=== PATIENT | male | born 1960 | race Caucasian/White ===

== ENCOUNTER → 2021-08-17 15:23 | Outpatient (BNVA) | payer OTHER, SELFPAY | PROVIDERS: Visit Provider Urology | DX: N40.1 Benign prostatic hyperplasia with lower urinary tract symptoms (principal); N32.0 Bladder-neck obstruction; N13.8 Other obstructive and reflux uropathy; Z79.899 Other long term (current) drug therapy | CPT/HCPCS: 51798 ==

== ENCOUNTER 2022-01-19 08:14 | Emergency (ER) | payer OTHER, SELFPAY ==
[2022-01-19 08:15] VITALS: BP 182/92; PULSE 115; RESP 18; TEMP 35.9; O2SAT 99; BMI 25.1
--- NOTE | 2022-01-19 08:27 | ED.URI ---
HPI - URI/Sore Throat General Chief Complaint: General Medical Stated Complaint: sore throat Time Seen by Provider: 01/19/22 08:24 Source: patient Mode of arrival: ambulatory Limitations: no limitations History of Present Illness MD elicited complaint: sore throat Onset (ago): week(s) (1) Consistency: constant Severity: moderate Able to tolerate fluids by mouth: Yes Exacerbating factors: swallowing Relieving factors: nothing Associated symptoms: headache and sore throat Treatments prior to arrival: none Related Data Previous Rx's Medication Instructions Recorded tamsulosin 0.4 mg capsule 0.4 mg PO DAILY 90 Days #90 cap 03/29/21 finasteride 5 mg tablet 5 mg PO DAILY 90 Days #90 tab 09/27/21 amoxicillin 500 mg tablet 500 mg PO TID 10 Days #30 tab 01/19/22 Allergies Allergy/AdvReac Type Severity Reaction Status Date / Time No Known Allergies Allergy Verified 01/19/22 08:19 [No Known Allergies*] Review of Systems Review of Systems: Constitutional : No Fever, No Chills ENT/Mouth : pos sore throat, No Rhinorrhea Eyes: No Eye Pain, No Swelling, No Redness Cardiovascular : No Chest Pain, No SOB Respiratory : No Cough, No Sputum, No Wheezing Gastrointestinal : No Nausea, No Vomiting Musculoskeletal : No joint pain, No Myalgias Skin : No Skin Lesions, No rash Neuro : No Weakness, No Numbness, No Dizziness, pos Headache PMFSH Past Medical History Medical History No known health problems Social History Social History (Updated 01/19/22 @ 08:40 by Kaila Minor DO) Patient Tobacco Use Status: Never used Tobacco Advance Directives: No Advance Directives Information Provided: No Physical Exam Vital Signs: Vital Signs: Last Vital Signs Temp 96.6 F L 01/19/22 08:15 Pulse 115 H 01/19/22 08:15 Resp 18 01/19/22 08:15 BP 182/92 H 01/19/22 08:15 Pulse Ox 99 01/19/22 08:15 BMI result Body Mass Index 25.1 Appearance: Alert. Oriented X3. No acute distress. Eyes: Pupils equal, round and reactive to light. ENT: Pharynx moderate generalized erythema of both tonsils uvula midline, tolerating secretions Neck: Normal inspection. Neck supple. CVS: Normal heart rate and rhythm. Pulses normal. Respiratory: No respiratory distress. Breath sounds normal. Skin: Skin warm and dry. Normal skin color. Normal skin turgor. Extremities: No lower extremity edema. Neuro: Oriented X 3. No motor deficit. No sensory deficit. MDM - URI/Sore Throat MDM Narrative Medical decision making narrative: 61 yo male here with sore throat - tonsils are swollen uvula is midline throat is very red suspect tonsillitis, he has no signs of deeper space infection, able to tolerate secretions - COVID/strep sent off from triage. Will treat with amoxicillin Discharge Plan Discharge Clinical Impression: Acute tonsillitis Patient Disposition: Home, Self-Care Instructions: Tonsillitis (ED) Additional Instructions: return to ED for any worsening symptoms or concerns Prescriptions: New amoxicillin 500 mg tablet 500 mg PO TID 10 Days Qty: 30 0RF No Action tamsulosin 0.4 mg capsule 0.4 mg PO DAILY 90 Days Qty: 90 2RF finasteride 5 mg tablet 5 mg PO DAILY 90 Days Qty: 90 3RF Referrals: Physician,None [Primary Care Provider] - 2 days (if not better) Stand Alone Forms: Work/School Release
[2022-01-19 08:45] LABS: IDNOW Serial# 08D9AD1C; Strep A Nucleic Acid Negative (Negative)
[2022-01-19 08:49] LABS: COVID-19 Test Negative (Negative)
[2022-01-19] MEDS: Amoxicillin 500 MG CAPSULE PO (08:49)
== END 2022-01-19 09:10 | disposition home or self-care (01) ==
PROVIDERS: Emergency Provider Emergency Medicine
DX: J03.90 Acute tonsillitis, unspecified (principal); Z20.822 Contact with and (suspected) exposure to COVID-19; Z79.899 Other long term (current) drug therapy
CPT/HCPCS: 36415; 87635; 87651; 99283

== ENCOUNTER 2022-02-05 17:58 | Emergency (ER) | payer OTHER, SELFPAY ==
--- NOTE | ~2022-02-05 | CT_ITS ---
Indication: Trauma EXAMINATION: CT the brain and cervical spine. This CT examination was performed using dose optimization techniques as appropriate, variously including the following: *Automated exposure control *Adjustment of mA and/or kV according to patient size (this includes techniques or standardized protocols for targeted exams where dose is matched to indication/reason for exam; i.e. extremities or head) *Use of iterative reconstruction technique. Radiation dose [address] brain; There is no midline shift. There is no mass effect. There is no hemorrhage. The basilar cisterns appear patent. The posterior fossa risk grossly within normal limits. No extra-axial collection. The perez-white differential is maintained. There is no fracture on the bone windows. CT cervical spine; No fracture or dislocation. CT/CT head/brain wo con IMPRESSION: Negative acute noncontrast CT of the brain. No fracture or dislocation of the cervical spine.
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
--- NOTE | ~2022-02-05 | CT_ITS ---
Indication: Trauma EXAMINATION: CT the brain and cervical spine. This CT examination was performed using dose optimization techniques as appropriate, variously including the following: *Automated exposure control *Adjustment of mA and/or kV according to patient size (this includes techniques or standardized protocols for targeted exams where dose is matched to indication/reason for exam; i.e. extremities or head) *Use of iterative reconstruction technique. Radiation dose [address] brain; There is no midline shift. There is no mass effect. There is no hemorrhage. The basilar cisterns appear patent. The posterior fossa risk grossly within normal limits. No extra-axial collection. The perez-white differential is maintained. There is no fracture on the bone windows. CT cervical spine; No fracture or dislocation. CT/CT cervical spine wo con IMPRESSION: Negative acute noncontrast CT of the brain. No fracture or dislocation of the cervical spine.
--- NOTE | ~2022-02-05 | XR_ITS ---
EXAMINATION: CHEST, BILATERAL KNEES AND AP PELVIS. CLINICAL INFORMATION: Head trauma, EtOH COMPARISON: None TECHNIQUE: Chest one view. 2 views each knee and pelvis one view. FINDINGS: Chest: Both lungs are fairly well-expanded and clear of acute process. The heart size and pulmonary vascularity is normal. No gross bony abnormality seen. Right knee: There is no visible acute fracture, dislocation or subluxation seen. No bony erosive changes. The soft tissues are normal. No abnormal joint effusion. Left knee: The tricompartment joint space is maintained normal. No visible acute fracture, dislocation or subluxation seen. AP pelvis: There is normal symmetry of bilateral SI joints and hip joints. No visible acute fracture or dislocation seen. XR/XR knee LT 2V IMPRESSION: Unremarkable AP pelvis. Unremarkable bilateral knees. Unremarkable chest x-ray.
--- NOTE | ~2022-02-05 | XR_ITS ---
EXAMINATION: CHEST, BILATERAL KNEES AND AP PELVIS. CLINICAL INFORMATION: Head trauma, EtOH COMPARISON: None TECHNIQUE: Chest one view. 2 views each knee and pelvis one view. FINDINGS: Chest: Both lungs are fairly well-expanded and clear of acute process. The heart size and pulmonary vascularity is normal. No gross bony abnormality seen. Right knee: There is no visible acute fracture, dislocation or subluxation seen. No bony erosive changes. The soft tissues are normal. No abnormal joint effusion. Left knee: The tricompartment joint space is maintained normal. No visible acute fracture, dislocation or subluxation seen. AP pelvis: There is normal symmetry of bilateral SI joints and hip joints. No visible acute fracture or dislocation seen. XR/XR knee RT 2V IMPRESSION: Unremarkable AP pelvis. Unremarkable bilateral knees. Unremarkable chest x-ray.
--- NOTE | ~2022-02-05 | XR_ITS ---
EXAMINATION: CHEST, BILATERAL KNEES AND AP PELVIS. CLINICAL INFORMATION: Head trauma, EtOH COMPARISON: None TECHNIQUE: Chest one view. 2 views each knee and pelvis one view. FINDINGS: Chest: Both lungs are fairly well-expanded and clear of acute process. The heart size and pulmonary vascularity is normal. No gross bony abnormality seen. Right knee: There is no visible acute fracture, dislocation or subluxation seen. No bony erosive changes. The soft tissues are normal. No abnormal joint effusion. Left knee: The tricompartment joint space is maintained normal. No visible acute fracture, dislocation or subluxation seen. AP pelvis: There is normal symmetry of bilateral SI joints and hip joints. No visible acute fracture or dislocation seen. XR/XR chest 1V IMPRESSION: Unremarkable AP pelvis. Unremarkable bilateral knees. Unremarkable chest x-ray.
--- NOTE | 2022-02-05 18:12 | ECG_ITS ---
Test Reason : ETOH Blood Pressure : / mmHG Vent. Rate : 085 BPM Atrial Rate : 085 BPM P-R Int : 228 ms QRS Dur : 086 ms QT Int : 386 ms P-R-T Axes : 069 006 052 degrees QTc Int : 459 ms Sinus rhythm with 1st degree A-V block Possible Inferior infarct , age undetermined Abnormal ECG No previous ECGs available Referred By: Emi Dumont Electronically Signed By:KRUNAL SILVA
[2022-02-05 18:13] VITALS: BP 136/79; BP 160/90; PULSE 82; PULSE 90; RESP 18; TEMP 36.6; O2SAT 94; O2SAT 95; BMI 25.8
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
[2022-02-05 18:30] VITALS: BP 144/81; PULSE 88; RESP 16; O2SAT 94
[2022-02-05 19:35] VITALS: BP 120/78; PULSE 90; RESP 15; O2SAT 97
[2022-02-05] MEDS: Diphth,Pertus(ACell),Tet Adult 0.5 ML SYRINGE IM (19:42)
[2022-02-05 20:31] VITALS: BP 130/82; PULSE 88; RESP 15; TEMP 36.6; O2SAT 95
== END 2022-02-05 22:08 | disposition home or self-care (01) ==
PROVIDERS: Emergency Provider Emergency Medicine Emergency Medical Services
DX: S06.0X0A Concussion without loss of consciousness, initial encounter (principal); S00.81XA Abrasion of other part of head, initial encounter; S80.212A Abrasion, left knee, initial encounter; S80.211A Abrasion, right knee, initial encounter; V17.0XXA Pedal cycle driver injured in collision with fixed or stationary object in nontraffic accident, initial encounter; F10.120 Alcohol abuse with intoxication, uncomplicated; Y90.9 Presence of alcohol in blood, level not specified; Y93.55 Activity, bike riding; Y92.414 Local residential or business street as the place of occurrence of the external cause; Y99.9 Unspecified external cause status
CPT/HCPCS: 70450; 71045; 72125; 72170; 73560; 90471; 90715; 93005; 99283; 99284

== ENCOUNTER 2022-06-26 20:28 | Emergency (ER) | payer OTHER, SELFPAY ==
[2022-06-26 21:42] VITALS: BP 170/88; PULSE 90; RESP 18; TEMP 37.2; O2SAT 98; BMI 25.7
[2022-06-26 21:58] LABS: MANUAL DIFF FLAG NO
[2022-06-26 21:59] LABS: Basophils Percent Auto 0.4 % (0-2); Eosinophils Absolute Auto 0.2 X10*3/uL (0.0-0.4); Eosinophils Percent Auto 1.4 % (0-4); Hematocrit 45.1 % (42.0-52.0); Hemoglobin 15.1 g/dl (14.0-18.0); Imm Gran Abs Auto 0.04 X10*3/uL (0.00-0.03); Imm Gran Pct Auto 0.4 % (0.0-0.4); Lymphocytes Absolute Auto 1.3 X10*3/uL (1.2-4.9); Lymphocytes Percent Auto 11.7 % (20-40); Mean Corpuscular HGB Conc 33.5 g/dl (31.0-36.0); Mean Corpuscular Hemoglobin 30.4 pg (27.0-33.0); Mean Corpuscular Volume 90.7 fL (80.0-98.0); Mean Platelet Volume 7.7 fL (9.4-12.4); Monocytes Percent Auto 9.3 % (2-11); Neutrophils Absolute Auto 8.3 x10*3/uL (2.0-8.3); Neutrophils Percent Auto 76.8 % (45-73); Platelet Count 243 X10*3/uL (160-400); Red Blood Count 4.97 X10*6/uL (4.60-5.80); Red Cell Distribution Width 12.6 % (11.0-16.0); White Blood Count 10.8 X10*3/uL (4.8-10.8)
[2022-06-26 22:14] LABS: COVID-19 Test Negative (Negative)
[2022-06-26 22:16] LABS: Alanine Aminotransferase 16 U/L (0-40); Albumin Level 4.2 g/dL (3.5-5.0); Alkaline Phosphatase 91 U/L (39-117); Anion Gap 15 (12-20); Aspartate Amino Transferase 15 U/L (5-37); Bilirubin Total 0.7 mg/dL (0.0-1.0); Blood Urea Nitrogen 15 mg/dL (9-16); Calcium 9.4 mg/dL (8.4-10.2); Carbon Dioxide 26 mmol/L (22-29); Chloride 104 mmol/L (96-108); Creatinine Clr Calc Pharmacy 83.6; Estimated Glomerular Filt Rate > 60; Glucose Random 113 mg/dL (60-115); Potassium 3.9 mmol/L (3.3-5.1); Sodium 141 mmol/L (135-145); Total Protein 6.7 g/dL (6.5-8.0)
--- NOTE | 2022-06-26 23:20 | ED_ITS ---
HPI - General Adult General Chief complaint: General Medical Stated complaint: Bodyaches/Wants covid swab Time Seen by Provider: 06/26/22 22:57 Source: patient Mode of arrival: ambulatory Limitations: no limitations History of Present Illness HPI narrative: 62-year-old healthy male presents to the ER for evaluation of body aches that started this afternoon around 15:00. He reports the muscles in his back shoulde rs arms and chest wall were all very sore. He took Tylenol and the pain got better. He is worried he may have COVID. He denies any fever, chills, cough, chest pain, shortness a breath, abdominal pain, nausea, vomiting, diarrhea. He has been eating and drinking normally. He denies any vigorous physical activity or known injuries. On arrival to the ER he is feeling much better. MD complaint: Body ache Onset (ago): hour(s) Location: head, chest, left, right and upper extremity Radiation: non-radiation Severity: moderate Pain Consistency: now resolved Relieving factors: none Exacerbating factors: none Associated symptoms: denies other symptoms Treatments prior to arrival: none Related Data Previous Rx's Medication Instructions Recorded tamsulosin 0.4 mg capsule 0.4 mg PO DAILY 90 days #90 caps 03/29/21 finasteride 5 mg tablet 5 mg PO DAILY 90 days #90 tabs 09/27/21 amoxicillin 500 mg tablet 500 mg PO TID 10 days #30 tabs 01/19/22 Allergies Allergy/AdvReac Type Severity Reaction Status Date / Time No Known Allergies Allergy Verified 06/26/22 21:48 [No Known Allergies*] Review of Systems Review of Systems: Constitutional: No Fever, No Chills ENT/Mouth: No sore throat, No Rhinorrhea, No Swallowing Difficulty Cardiovascular: No Chest Pain, No SOB, No Orthopnea, No Edema Respiratory: No Cough, No Sputum, No Wheezing, No dyspnea Gastrointestinal: No Nausea, No Vomiting, No Diarrhea, No abdominal Pain, No Hematochezia, No Melena Genitourinary: No Dysuria, No Urinary Frequency, No Hematuria Musculoskeletal: No joint pain, + Myalgias Skin: No Skin Lesions, No rash Neuro: No Weakness, No Numbness, No Dizziness, + Headache Psych: + Anxiety/Panic, No Depression Heme/Lymph: No Bruising, No Lymphadenopathy Endocrine: No Polyuria, No Polydipsia PMFSH Past Medical History Medical History No known health problems Social History Social History Patient Tobacco Use Status: Never used Tobacco Advance Directives: No Advance Directives Information Provided: No Physical Exam ED Vital Signs: Vital Signs - 24 hr 06/26/22 21:42 Temperature 98.9 F Pulse Rate 90 Respiratory Rate 18 Blood Pressure 170/88 H Pulse Oximetry 98 Oxygen Delivery Method Room Air BMI result Body Mass Index 25.7 Appearance: Alert. Oriented X3. No acute distress. Eyes: Pupils equal, round and reactive to light. ENT: Pharynx normal. Neck: Normal inspection. Neck supple. CVS: Normal heart rate and rhythm. Pulses normal. Respiratory: No respiratory distress. Breath sounds normal. Skin: Skin warm and dry. Normal skin color. Normal skin turgor. No rashes. Extremities: No lower extremity edema. Normal inspection x4, normal ROM. nontender Neuro: Oriented X 3. No motor deficit. No sensory deficit. Course Course Course Narrative: 62-year-old male with no significant medical history presents to the ER for evaluation of transient body aches that occurred earlier this afternoon. Impro nimo with Tylenol. He is concerned he may have COVID. COVID swab today was negative. His vital signs and exam are unremarkable. At this time is stable for discharge home with supportive care. Counseled to monitor fever curve and keep an eye on his symptoms. Encouraged to get at home COVID tests. He needs a PCP in this information was provided. Stable for DC. Medical Decision Making Lab Data Result diagrams: 06/26/22 21:51 06/26/22 21:51 Labs: Lab Results 06/26/22 06/26/22 06/26/22 Range/Units 21:48 21:51 21:51 WBC 10.8 (4.8-10.8) X10*3/uL RBC 4.97 (4.60-5.80) X10*6/uL Hgb 15.1 (14.0-18.0) g/dl Hct 45.1 (42.0-52.0) % MCV 90.7 (80.0-98.0) fL MCH 30.4 (27.0-33.0) pg MCHC 33.5 (31.0-36.0) g/dl RDW 12.6 (11.0-16.0) % Plt Count 243 (160-400) X10*3/uL MPV 7.7 L (9.4-12.4) fL Immature Gran % (Auto) 0.4 (0.0-0.4) % Neut % (Auto) 76.8 H (45-73) % Lymph % (Auto) 11.7 L (20-40) % [place] % (Auto) 9.3 (2-11) % Eos % (Auto) 1.4 (0-4) % Baso % (Auto) 0.4 (0-2) % Lymph # (Auto) 1.3 (1.2-4.9) X10*3/uL [place] # (Auto) 1.0 (0.1-1.2) X10*3/uL Eos # (Auto) 0.2 (0.0-0.4) X10*3/uL Baso # (Auto) 0.0 (0.0-0.2) X10*3/uL Abs Immat Gran (auto) 0.04 H (0.00-0.03) X10*3/uL Absolute Neuts (auto) 8.3 (2.0-8.3) x10*3/uL Absolute Nucleated RBC 0.000 (0.0-0.012) X10*3/uL Nucleated RBC % (auto) 0.0 (0.0-0.2) /100WBC Sodium 141 (135-145) mmol/L Potassium 3.9 (3.3-5.1) mmol/L Chloride 104 (96-108) mmol/L Carbon Dioxide 26 (22-29) mmol/L Anion Gap 15 (12-20) BUN 15 (9-16) mg/dL Creatinine 0.95 (0.5-1.4) mg/dL Estim Creat Clear Calc 83.6 Estimated GFR > 60 Random Glucose 113 (60-115) mg/dL Calcium 9.4 (8.4-10.2) mg/dL Total Bilirubin 0.7 (0.0-1.0) mg/dL AST 15 (5-37) U/L ALT 16 (0-40) U/L Alkaline Phosphatase 91 (39-117) U/L Total Protein 6.7 (6.5-8.0) g/dL Albumin 4.2 (3.5-5.0) g/dL COVID-19 (DAFNE) Negative (Negative) COVID-19 Clin Com See Note Discharge Plan Discharge Clinical Impression: Body aches Patient Disposition: Home, Self-Care Instructions: Viral Syndrome (ED) Additional Instructions: Your lab workup today was unremarkable. Your negative for COVID-19. Recommend rest, drink plenty of fluids, take Motrin and/or Tylenol as needed for body aches. If you develop new or worsening symptoms call 911 or come back to the ER for further evaluation. Prescriptions: No Action tamsulosin 0.4 mg capsule 0.4 mg PO DAILY 90 Days Qty: 90 2RF finasteride 5 mg tablet 5 mg PO DAILY 90 Days Qty: 90 3RF amoxicillin 500 mg tablet 500 mg PO TID 10 Days Qty: 30 0RF Interventions: ED Discharge Assessment Last Done: 06/26/22 23:32 Discharge Date/Time: 06/26/22 23:33
== END 2022-06-26 23:33 | disposition home or self-care (01) ==
PROVIDERS: Emergency Provider Emergency Medicine
DX: M79.10 Myalgia, unspecified site (principal); R07.89 Other chest pain; Z20.822 Contact with and (suspected) exposure to COVID-19; Z79.899 Other long term (current) drug therapy
CPT/HCPCS: 36415; 80053; 85025; 87635; 99282; 99283

== ENCOUNTER 2022-07-28 16:09 | Outpatient (REF) | payer OTHER, SELFPAY ==
[2022-07-28 18:28] LABS: Prostate Specific Antigen 1.38 ng/mL (<0.05-4.0)
== END 2022-07-28 16:10 | disposition home or self-care (01) ==
LOC: HO.LAB 16:09
PROVIDERS: Visit Provider Urology
DX: Z12.5 Encounter for screening for malignant neoplasm of prostate (principal); N40.1 Benign prostatic hyperplasia with lower urinary tract symptoms; N13.8 Other obstructive and reflux uropathy; N32.0 Bladder-neck obstruction
CPT/HCPCS: 36415; 84153

== ENCOUNTER → 2022-08-04 13:10 | Outpatient (BNVA) | payer OTHER, SELFPAY | PROVIDERS: Visit Provider Urology | DX: N32.0 Bladder-neck obstruction (principal) | CPT/HCPCS: 51798 ==

== ENCOUNTER 2023-01-23 11:20 | Emergency (ER) | payer OTHER, SELFPAY ==
--- NOTE | ~2023-01-23 | CT_ITS ---
EXAMINATION: CT ABDOMEN AND PELVIS WITHOUT CONTRAST CLINICAL INFORMATION: Left renal colic and flank pain. COMPARISON: CT scan of the abdomen and pelvis dated 06/25/2019. TECHNIQUE: Multidetector volumetric imaging was performed from the superior aspect of the liver through the pubic symphysis. Sagittal and coronal reformatted images were obtained on the technologist's workstation. Lack of intravenous and oral contrast limits visceral evaluation. This CT examination was performed using dose optimization techniques as appropriate, variously including the following: *Automated exposure control *Adjustment of mA and/or kV according to patient size (this includes techniques or standardized protocols for targeted exams where dose is matched to indication/reason for exam; i.e. extremities or head) *Use of iterative reconstruction technique DLP: 496 mGy-cm FINDINGS: LUNG BASES: The visualized lung bases are unremarkable. LIVER, GALLBLADDER, AND BILIARY TREE: Unremarkable. PANCREAS: Unremarkable. SPLEEN: Unremarkable. ADRENAL GLANDS: Unremarkable. KIDNEYS AND URETERS: Several small low-attenuation foci without calcification is seen bilaterally. A credit resolution representative focus in the posterior interpolar left kidney measures 2.0 cm in cc dimension and demonstrates fluid attenuation (image 62, series 7). Several nonobstructing intrarenal calculi are seen bilaterally, left greater than right. No hydronephrosis. BLADDER: Mildly distended with mild mural thickening and possible trabeculation. No significant focal abnormality. GASTROINTESTINAL TRACT: The stomach and small bowel unremarkable. No evidence for acute appendicitis. Colon shows mild diverticulosis in the sigmoid colon without surrounding abnormality. The rectum is unremarkable. ABDOMINAL WALL: Small fat-containing umbilical hernia. LYMPH NODES: No lymphadenopathy. VASCULAR: Unremarkable. PELVIC VISCERA: Mild prostatomegaly. OSSEOUS STRUCTURES: Unremarkable. CT/CT abdomen pelvis wo IV con IMPRESSION: 1. Nonobstructing intrarenal calculi bilaterally, left greater than right. No hydroureteronephrosis. Small low-attenuation foci bilaterally demonstrate benign features and likely represent cysts not requiring follow-up at this time. 2. Mild sigmoid diverticulosis without evidence for acute diverticulitis. 3. Mild mural thickening and possible trabeculation and urinary bladder without focal mural abnormality likely representing chronic changes from prostamegaly.
--- NOTE | ~2023-01-23 | XR_ITS ---
EXAMINATION: XR LUMBOSACRAL SPINE CLINICAL INFORMATION: Back pain. COMPARISON: None available. TECHNIQUE: Three views of the lumbosacral spine. FINDINGS: There is generalized osteopenia. Normal lumbar lordosis and spinal alignment is seen. Mild disc space narrowing is seen at L4-5 and L5-S1. The vertebral bodies are intact. A small calcification overlies the left midabdomen/kidney. The soft tissues are unremarkable. XR/XR lumbar spine 2-3V IMPRESSION: 1. L4-5 and L5-S1 mild disc space narrowing may be degenerative in nature. No acute abnormality. 2. Radiographic densities overlying the left abdomen could represent a left adrenal calculus.
[2023-01-23 11:22] VITALS: BP 148/88; PULSE 104; RESP 19; TEMP 36.6; O2SAT 98; BMI 25.1
--- NOTE | 2023-01-23 11:23 | ED_ITS ---
HPI - Back Pain/Injury General Chief Complaint: Back Pain/Injury <ECHO Lopez - Last Filed: 01/23/23 11:25> Stated Complaint: severe back pain travels to leg <ECHO Lopez - Last Filed: 01/23/23 11:25> Time Seen by Provider: 01/23/23 11:29 <ECHO Lopez - Last Filed: 01/23/23 11:25> Source: patient and RN notes reviewed <Angelica Pablo NP - Last Filed: 01/23/23 16:56> Mode of arrival: ambulatory <Angelica Pablo NP - Last Filed: 01/23/23 16:56> Limitations: no limitations <Angelica Pablo NP - Last Filed: 01/23/23 16:56> History of Present Illness HPI Narrative: This is a [id number], with a past medical history of bladder outlet obstruction, who presents to the emergency department with complaints of low back pain x 10 days. Pt reports that while he was at work a large paper roll was stuck, and he used his buttocks/back to strike the object multiple times in order to make this loose. He states that since this incident, he has had worsening left low back pain that radiates into his left buttocks and left thigh . He is ambulatory, but reports worsening pain with movement and with palpation. Denies hx of back pain or injuries in the past. Denies chest pain or shortness of breath. No urinary retention or incontinence. Denies any bowel incontinence or constipation. Denies any saddle paraesthesia. No other complaints or concerns at this time. <Angelica Pablo NP - Last Filed: 01/23/23 16:56> MD elicited complaint: back injury <Angelica Pablo NP - Last Filed: 01/23/23 16:56> Pertinent past history: recent trauma <Angelica Pablo NP - Last Filed: 01/23/23 16:56> Onset (ago): day(s) <FLORENTIN Garzon Last Filed: 01/23/23 16:56> Timing: constant <Angelica Pablo NP - Last Filed: 01/23/23 16:56> Severity: moderate <Angelica Pablo NP - Last Filed: 01/23/23 16:56> Similar Symptoms Previously: No <Angelica Pablo NP - Last Filed: 01/23/23 16:56> Quality: aching <Angelica Pablo NP - Last Filed: 01/23/23 16:56> Radiation: buttocks <Angelica Pablo [employer] - Last Filed: 01/23/23 16:56> Exacerbating factors: movement <Angelica Pablo NP - Last Filed: 01/23/23 16:56> Relieving factors: immobilization <Angelica Pablo NP - Last Filed: 01/23/23 16:56> Associated symptoms: denies other symptoms <Angelica Pablo NP - Last Filed: 01/23/23 16:56> Work related injury: Yes <Angelica Pablo NP - Last Filed: 01/23/23 16:56> Related Data Home Medications: Previous Rx's Medication Instructions Recorded tamsulosin 0.4 mg capsule 0.4 mg PO DAILY 90 days #90 caps 03/29/21 amoxicillin 500 mg tablet 500 mg PO TID 10 days #30 tabs 01/19/22 finasteride 5 mg tablet 5 mg PO DAILY 90 days #90 tabs 08/04/22 cyclobenzaprine 10 mg tablet 10 mg PO TID PRN muscle spasm #10 01/23/23 tabs lidocaine 5 % topical patch 1 patch topical DAILY #15 ea 01/23/23 (Lidoderm) <ECHO Lopez - Last Filed: 01/23/23 11:25> Allergies/Adverse Reactions: Allergies Allergy/AdvReac Type Severity Reaction Status Date / Time No Known Allergies Allergy Verified 01/23/23 11:22 [No Known Allergies*] <ECHO Lopez - Last Filed: 01/23/23 11:25> Review of Systems Review of Systems: Yes all other systems are reviewed and are negative <Angelica Pablo NP - Last Filed: 01/23/23 16:56> Constitutional: Constitutional: Reports no additional constitutional complaints, Denies body ache(s), Denies chills, Denies fever(s), Denies headache(s) and Denies weakness <Angelica Pablo [employer] - Last Filed: 01/23/23 16:56> Eyes: Eyes: Reports no additional eye complaints and Denies change in vision <Angelica Pablo [employer] - Last Filed: 01/23/23 16:56> ENT: Reports system reviewed and no additional complaints, except as documented, Denies dizziness, Denies headache(s), Denies nasal congestion, Denies nasal discharge and Denies neck pain <Angelica Pablo [employer] - Last Filed: 01/23/23 16:56> Cardiovascular: Cardiovascular: Reports no additional cardiovascular complaints, Denies chest pain, Denies leg edema and Denies dyspnea <Angelica Pablo [employer] - Last Filed: 01/23/23 16:56> Respiratory: Respiratory: Reports no additional respiratory complaints, Denies cough and Denies dyspnea <Angelica Pablo [employer] - Last Filed: 01/23/23 16:56> Gastrointestinal: Gastrointestinal: Reports no additional gastrointestinal complaints, Denies abdominal pain, Denies diarrhea, Denies nausea and Denies vomiting <Angelica Pablo [employer] - Last Filed: 01/23/23 16:56> Genitourinary: Genitourinary: Denies urinary incontinence <Angelica Pablo [employer] - Last Filed: 01/23/23 16:56> Musculoskeletal: Musculoskeletal: Reports no additional musculoskeletal complaints, Reports back pain, Denies arthralgias, Denies joint swelling, Denies neck pain, Denies numbness and Denies tingling <Angelica Pablo [employer] - Last Filed: 01/23/23 16:56> Integumentary/Breasts: Skin/Breast: Reports system reviewed and no additional complaints, except as docu and Denies rash <Angelica Pablo [employer] - Last Filed: 01/23/23 16:56> Neurologic: Reports system reviewed and no additional complaints, except as documented, Denies Abnormal speech present, Denies dizziness, Denies headache(s), Denies numbness, Denies tingling and Denies weakness <Angelica Pablo NP - Last Filed: 01/23/23 16:56> [facility] Past Medical History Attestation statement: The following information was validated with the patient. <Angelica Pablo NP - Last Filed: 01/23/23 16:56> Medical History: Medical History Benign prostatic hyperplasia with lower urinary tract symptoms H/O urinary retention No known health problems <ECHO Lopez - Last Filed: 01/23/23 11:25> Social History Social History: Social History Patient Tobacco Use Status: Never used Tobacco Advance Directives: No Advance Directives Information Provided: Yes <ECHO Lopez - Last Filed: 01/23/23 11:25> Physical Exam Vital Signs: Vital Signs: Last Vital Signs Temp 97.4 F 01/23/23 16:00 Pulse 72 01/23/23 16:00 Resp 16 01/23/23 16:00 BP 146/74 H 01/23/23 16:00 Pulse Ox 98 01/23/23 16:00 O2 Del Method 01/23/23 16:00 BMI result Body Mass Index 25.1 <ECHO Lopez - Last Filed: 01/23/23 11:25> Vital Signs: Last Vital Signs Temp 97.4 F 01/23/23 16:00 Pulse 72 01/23/23 16:00 Resp 16 01/23/23 16:00 BP 146/74 H 01/23/23 16:00 Pulse Ox 98 01/23/23 16:00 O2 Del Method 01/23/23 16:00 BMI result Body Mass Index 25.1 <Angelica Pablo NP - Last Filed: 01/23/23 16:56> Const: General: cooperative, healthy appearing, comfortable and no acute distress <Angelica Pablo NP - Last Filed: 01/23/23 16:56> Orientation/consciousness: patient oriented x3 <Angelica Pablo NP - Last Filed: 01/23/23 16:56> Limitations: no limitations <Angelica Pablo [employer] - Last Filed: 01/23/23 16:56> HEENT: Head: Yes normal to inspection <Angelica Pablo [employer] - Last Filed: 01/23/23 16:56> Ears: hearing grossly normal bilaterally <Angelica Pablo [employer] - Last Filed: 01/23/23 16:56> General nose exam: Normal external nose present <Angelica Pablo [employer] - Last Filed: 01/23/23 16:56> Face and sinus: Yes normal facial exam <Angelica Pablo [employer] - Last Filed: 01/23/23 16:56> Mouth: Normal oral and palatal mucosa present <Angelica Pablo [employer] - Last Filed: 01/23/23 16:56> Throat: Yes posterior oropharynx normal <Angelica Pablo [employer] - Last Filed: 01/23/23 16:56> Eyes: General: appearance normal, both eyes and all related structures <Angelica Pablo [employer] - Last Filed: 01/23/23 16:56> Pupils: Equal, round and reactive pupils present <Angelica Pablo [employer] - Last Filed: 01/23/23 16:56> Neck: Neck: Yes normal visual inspection <Angelica Pablo [employer] - Last Filed: 01/23/23 16:56> Chest: Chest palpation & inspection: normal inspection of the chest <Angelica Pablo [employer] - Last Filed: 01/23/23 16:56> Resp: Effort & Inspection: normal respiratory effort <Angelica Pablo [employer] - Last Filed: 01/23/23 16:56> Auscultation: clear to auscultation bilaterally <Angelica Pablo [employer] - Last Filed: 01/23/23 16:56> Cardio: Rate: regular rate <Angelica Pablo [employer] - Last Filed: 01/23/23 16:56> Rhythm: regular rhythm <Angelica Pablo [employer] - Last Filed: 01/23/23 16:56> Peripheral pulses: Peripheral pulses 2+ throughout <Angelica Pablo [employer] - Last Filed: 01/23/23 16:56> GI: Inspection: Yes normal to inspection <Angelicaalcon Pablo [employer] - Last Filed: 01/23/23 16:56> Palpation (GI): Soft to palpation and nontender <Angelica Pablo [employer] - Last Filed: 01/23/23 16:56> Auscultation: normal bowel sounds <Angelica Pablo [employer] - Last Filed: 01/23/23 16:56> Back/Spine/Pelvis: Other: No midline spine tenderness. TTP over the left paraspinous muscles. No SI joint tenderness. Negative straight leg raise bilaterally. <Angelica Pablo, [employer] - Last Filed: 01/23/23 16:56> Thoracic/Lumbar Spine: thoracic and lumbar spine normal to inspection <Angelica Pablo, [employer] - Last Filed: 01/23/23 16:56> Skin: General skin exam: no rashes or lesions noted <Angelica Pablo [employer] - Last Filed: 01/23/23 16:56> Neuro: General: patient oriented x3, no focal motor deficits and normal sensation to monofilament <Angelica Pablo, [employer] - Last Filed: 01/23/23 16:56> Cranial nerves: Yes Equal, round and reactive pupils present <Angelica Pablo [employer] - Last Filed: 01/23/23 16:56> Cognition (Neuro): normal cognition <Angelica Pablo [employer] - Last Filed: 01/23/23 16:56> Speech: No Abnormal speech present <Angelica Pablo [employer] - Last Filed: 01/23/23 16:56> Gait exam (Neuro): Normal gait present <Angelica Pablo [employer] - Last Filed: 01/23/23 16:56> Motor exam (neuro): 5/5 motor strength present throughout <Angelica Pablo [employer] - Last Filed: 01/23/23 16:56> Sensory Exam: Normal double simultaneous stimulation for sensation <Angelica Pablo [employer] - Last Filed: 01/23/23 16:56> Deep tendon reflexes (DTR's): Right patellar reflex intensity grade: 2+ and Left patellar reflex intensity grade: 2+ <Angelica Pablo NP - Last Filed: 01/23/23 16:56> Extrem: General: Yes normal to inspection and No no pedal edema <Angelica Pablo NP - Last Filed: 01/23/23 16:56> Course Course Course Narrative: This is an RME: Additional HPI, ROS, PE not included below will be deferred to primary provider. 62 year old male hx of SMITH presents w/ L sided lumbar back pain w/ radiation into L buttocks and thigh X1 week. 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 No blunt trauma however. Denies red flag symptoms. PE: tenderness to L lumbar region. No midline tenderness. Ambulatory. Well appearing Plan:medication, imaging of lower back. <ECHO Lopez - Last Filed: 01/23/23 11:25> Reevaluation(s) Reevaluation #1: 1308-X-ray of lumbar spine shows degenerative changes ?left renal colic. Will obtain CT A/P <Angelica Pablo NP - Last Filed: 01/23/23 16:56> Reevaluation #2: 1650-Ct A/P shows infrarenal calculi, other chronic findings discussed with the patient. Likely lumbar strain. Will d/c home with flexeril. lidoderm patches. Reviewed worrisome signs/symptoms with the patient and when to seek additional care. Comfortable with plan for discharge home. <Angelica Pablo NP - Last Filed: 01/23/23 16:56> Medications Administered Discontinued Medications Generic Name Dose Route Start Last Admin Trade Name Scottq PRN Reason Stop Dose Admin Cyclobenzaprine HCl 10 mg 01/23/23 11:21 01/23/23 11:32 Cyclobenzaprine Hcl 10 Mg Tablet PO 01/23/23 11:22 10 mg ONCE ONE Administration Ketorolac Tromethamine 30 mg 01/23/23 11:21 01/23/23 11:32 Ketorolac Tromethamine 30 Mg/Ml Vial IM 01/23/23 11:22 30 mg ONCE ONE Administration Lidocaine 1 patch 01/23/23 11:21 01/23/23 11:31 Lidocaine 4 % Patch Adh..Patch TRANSDERMA 01/23/23 11:22 1 patch ONCE ONE Administration Protocol <ECHO Lopez - Last Filed: 01/23/23 11:25> Medications Administered Discontinued Medications Generic Name Dose Route Start Last Admin Trade Name Renetta PRN Reason Stop Dose Admin Cyclobenzaprine HCl 10 mg 01/23/23 11:21 01/23/23 11:32 Cyclobenzaprine Hcl 10 Mg Tablet PO 01/23/23 11:22 10 mg ONCE ONE Administration Ketorolac Tromethamine 30 mg 01/23/23 11:21 01/23/23 11:32 Ketorolac Tromethamine 30 Mg/Ml Vial IM 01/23/23 11:22 30 mg ONCE ONE Administration Lidocaine 1 patch 01/23/23 11:21 01/23/23 11:31 Lidocaine 4 % Patch Adh..Patch TRANSDERMA 01/23/23 11:22 1 patch ONCE ONE Administration Protocol <Angelica Pablo NP - Last Filed: 01/23/23 16:56> Medical Decision Making Medical Decision Making MDM Narrative: 62 yo M, with a hx of bladder outlet obstruction, who presents today with traumatic back pain after using his backside to hit an object 10 days ago at work. Vital signs stable. On exam, patient has TTP over the left paraspinous muscles with no midline spine tenderness. Patient is ambulatory. No urinary retention or incontinence. No constipation, no bowel incontinence. No saddle paraesthesia. Lumbar spine xrays ordered, patient mediated with Toradol, lidocaine patches, and flexeril. <Angelica Pablo NP - Last Filed: 01/23/23 16:56> Differential Diagnosis Differential Diagnoses: The differential diagnosis associated with the presentation includes <Angelica Pablo NP - Last Filed: 01/23/23 16:56> Lumbar contusion, sciatica, fracture- less likely, cauda equina, AAA, epidural abscess <Angelica Pablo NP - Last Filed: 01/23/23 16:56> Independent Interpretation I performed an independent interpretation of an: Plain X-Ray and CT Scan <Angelica Pablo NP - Last Filed: 01/23/23 16:56> Interpretation: I independently reviewed the chest x-ray and Ct scan and agree with radiologist report <Angelica Pablo NP - Last Filed: 01/23/23 16:56> Radiology Impression Discussion of test interpretation with radiology: I have reviewed the radiologist's reading. <Angelica Pablo NP - Last Filed: 01/23/23 16:56> Radiologist Impression: [facility] [id number] [place] [address] XRay Report Signed Patient: Rangel Tinsley MR#: [id number] : 1960 Acct:[id number] Age/Sex: 62 / M ADM Date: 01/23/23 Loc: HO.ED Attending Dr: Ordering Physician: Edgar Laguna Date of Service: 01/23/23 Procedure(s): XR lumbar spine 2-3V Accession Number(s): [id number] cc: Edgar Laguna~ EXAMINATION: XR LUMBOSACRAL SPINE CLINICAL INFORMATION: Back pain. COMPARISON: None available. TECHNIQUE: Three views of the lumbosacral spine. FINDINGS: There is generalized osteopenia. Normal lumbar lordosis and spinal alignment is seen. Mild disc space narrowing is seen at L4-5 and L5-S1. The vertebral bodies are intact. A small calcification overlies the left midabdomen/kidney. The soft tissues are unremarkable. XR/XR lumbar spine 2-3V IMPRESSION: ? 1. L4-5 and L5-S1 mild disc space narrowing may be degenerative in nature. No acute abnormality. 2. Radiographic densities overlying the left abdomen could represent a left adrenal calculus. FINDINGS: LUNG BASES: The visualized lung bases are unremarkable.? LIVER, GALLBLADDER, AND BILIARY TREE: Unremarkable. PANCREAS: Unremarkable.? SPLEEN: Unremarkable.? ADRENAL GLANDS: Unremarkable.? KIDNEYS AND URETERS: Several small low-attenuation foci without calcification is seen bilaterally. A strategic partnership representative focus in the posterior interpolar left kidney measures 2.0 cm in cc dimension and demonstrates fluid attenuation (image 62, series 7). Several nonobstructing intrarenal calculi are seen bilaterally, left greater than right. No hydronephrosis.? BLADDER: Mildly distended with mild mural thickening and possible trabeculation. No significant focal abnormality.? GASTROINTESTINAL TRACT: The stomach and small bowel unremarkable. No evidence for acute appendicitis. Colon shows mild diverticulosis in the sigmoid colon without surrounding abnormality. The rectum is unremarkable. ABDOMINAL WALL: Small fat-containing umbilical hernia.? LYMPH NODES: No lymphadenopathy. VASCULAR: Unremarkable. PELVIC VISCERA: Mild prostatomegaly.? OSSEOUS STRUCTURES: Unremarkable.? CT/CT abdomen pelvis wo IV con IMPRESSION: 1.? Nonobstructing intrarenal calculi bilaterally, left greater than right. No hydroureteronephrosis. Small low-attenuation foci bilaterally demonstrate benign features and likely represent cysts not requiring follow-up at this time. 2.? Mild sigmoid diverticulosis without evidence for acute diverticulitis. 3.? Mild mural thickening and possible trabeculation and urinary bladder without focal mural abnormality likely representing chronic changes from prostamegaly. ? <Angelica Pablo NP - Last Filed: 01/23/23 16:56> Prescription Management I considered prescription management with: Pain Medication <Angelica Pablo NP - Last Filed: 01/23/23 16:56> Discharge Plan Discharge Clinical Impression: Strain of lumbar region <ECHO Lopez - Last Filed: 01/23/23 11:25> Patient Disposition: Home, Self-Care <ECHO Lopez - Last Filed: 01/23/23 11:25> Additional Instructions: Your CT scan does show kidney stones with in your kidney but these are not causing your pain today You likely have a strain of your lower back which was related to your work injury. You should notify your employer that you hurt herself at work and you will likely need to follow-up with occupational health for further evaluation avoid any heavy lifting or bending Apply heat or ice to the area <ECHO Lopez - Last Filed: 01/23/23 11:25> Prescriptions: New lidocaine [Lidoderm] 5 % adhesive patch,medicated 1 patch topical DAILY Qty: 15 0RF Rx Instructions: leave on most painful area for up to 12 hrs cyclobenzaprine 10 mg tablet 10 mg PO TID PRN (Reason: muscle spasm) Qty: 10 0RF No Action tamsulosin 0.4 mg capsule 0.4 mg PO DAILY 90 Days Qty: 90 2RF amoxicillin 500 mg tablet 500 mg PO TID 10 Days Qty: 30 0RF finasteride 5 mg tablet 5 mg PO DAILY 90 Days Qty: 90 3RF <ECHO Lopez - Last Filed: 01/23/23 11:25> Referrals: Physician,None [Primary Care Provider] - <ECHO Lopez - Last Filed: 01/23/23 11:25>
[2023-01-23] MEDS: Lidocaine 4 % Patch ADH..PATCH 1 PATCH TRANSDERMA (11:31)
[2023-01-23] MEDS: Ketorolac Tromethamine 30 MG/ML VIAL IM (11:32)
[2023-01-23] MEDS: Cyclobenzaprine HCl 10 MG TABLET PO (11:32)
--- NOTE | 2023-01-23 11:36 | PC.NURSE ---
pt medicated per JAN for 06/15 lwer back pain. pt sts that he was moving a industrial size roll of paper off of a spool and s he may have believes he may have over done it fully ambulatory to room, sitting upright, call bowser within reach
[2023-01-23 16:00] VITALS: BP 146/74; PULSE 72; RESP 16; TEMP 36.3; O2SAT 98
== END 2023-01-23 17:17 | disposition home or self-care (01) ==
PROVIDERS: Emergency Provider Emergency Medicine
DX: M54.50 Low back pain, unspecified (principal); S39.012A Strain of muscle, fascia and tendon of lower back, initial encounter; X58.XXXA Exposure to other specified factors, initial encounter; Y93.89 Activity, other specified; Y92.9 Unspecified place or not applicable; Y99.9 Unspecified external cause status
CPT/HCPCS: 72100; 74176; 96372; 99284; J1885

== ENCOUNTER 2023-04-27 22:03 | Emergency (ER) | payer OTHER, SELFPAY ==
[2023-04-27 22:08] VITALS: BP 148/88; PULSE 83; O2SAT 96
[2023-04-27 22:20] VITALS: BP 136/84; PULSE 81; RESP 17; TEMP 36.9; O2SAT 96; BMI 24.8
[2023-04-27 22:56] VITALS: BP 120/71; PULSE 79; RESP 18; TEMP 36.6; O2SAT 95
[2023-04-27 23:13] VITALS: BP 120/66; PULSE 81; RESP 19; O2SAT 97
--- NOTE | 2023-04-27 23:31 | ED.ALCOHOL ---
HPI - Alcohol General Chief Complaint: ETOH/Substance Use Stated Complaint: ETOH Time Seen by Provider: 04/27/23 23:31 Source: patient and EMS Mode of arrival: EMS Limitations: no limitations History of Present Illness HPI narrative: 63-year-old male who presents emergency department for evaluation of alcohol intoxication. According to the paramedics he was found outside, and back of the [employer]. The patient was acutely intoxicated he was transported to the emergency department for evaluation. Patient states that he was drinking at a bar at the mall. He states that he was looking for his bicycle and he does not remember passing out. At the time my evaluation, he has no complaints. He is awake and oriented to person and place. He does have a strong odor of alcohol on his breath he does appear to be intoxicated however he does not appear to be injured in any way. Related Data Previous Rx's Medication Instructions Recorded tamsulosin 0.4 mg capsule 0.4 mg PO DAILY 90 days #90 caps 03/29/21 amoxicillin 500 mg tablet 500 mg PO TID 10 days #30 tabs 01/19/22 finasteride 5 mg tablet 5 mg PO DAILY 90 days #90 tabs 08/04/22 cyclobenzaprine 10 mg tablet 10 mg PO TID PRN muscle spasm #10 01/23/23 tabs lidocaine 5 % topical patch 1 patch topical DAILY #15 ea 01/23/23 (Lidoderm) Allergies Allergy/AdvReac Type Severity Reaction Status Date / Time No Known Allergies Allergy Verified 01/23/23 11:22 [No Known Allergies*] Review of Systems Review of Systems: Yes all other systems are reviewed and are negative [facility] Past Medical History [facility] Narrative: Social history: Patient does admit to drinking alcohol this evening. He does smoke cigarettes. He denies drug use. Medical History Benign prostatic hyperplasia with lower urinary tract symptoms H/O urinary retention No known health problems Social History Social History Alcohol intake: current Alcohol intake frequency: a few times a week Alcohol type: beer Patient Tobacco Use Status: Never used Tobacco Smoked in Last 30 Days: Yes Use of substances other than those prescribed or required for medical reasons: No Advance Directives: No Advance Directives Information Provided: Yes Physical Exam ED Vital Signs: Vital Signs - 24 hr 04/27/23 22:20 04/27/23 22:56 04/27/23 23:13 Temperature 98.4 F 97.8 F Pulse Rate 81 79 81 Respiratory Rate 17 18 19 Blood Pressure 136/84 120/71 120/66 Pulse Oximetry 96 95 97 Oxygen Delivery Method Room Air Room Air Room Air BMI result Body Mass Index 24.8 Const Other: Awake, alert, male patient, he appears to be acutely intoxicated, he does have strong odor of alcohol on his breath, does answer questions appropriately HENMT Head: Yes normal to inspection, Yes normocephalic and Yes atraumatic Ears: external ears normal General nose exam: Normal external nose present Face and sinus: Yes normal facial exam Mouth: Normal oral and palatal mucosa present Throat: Yes posterior oropharynx normal Eyes General: appearance normal, both eyes and all related structures Pupils: Equal, round and reactive pupils present Neck Neck: Yes normal visual inspection, Yes no lymphadenopathy, Yes trachea midline and Yes supple Chest Chest palpation & inspection: normal inspection of the chest and normal palpation of entire chest wall Resp Effort & Inspection: normal respiratory effort and able to speak in complete sentences Auscultation: clear to auscultation bilaterally Cardio Rate: regular rate Rhythm: regular rhythm Heart sounds: S1 normal heart sound present, S2 normal heart sound present and no murmurs GI Inspection: Yes normal to inspection Palpation (GI): Soft to palpation, nontender and no guarding Auscultation: normal bowel sounds General: Yes no CVA tenderness Back/Spine/Pelvis Back: no CVA tenderness Skin General skin exam: no rashes or lesions noted Neuro Cranial nerves: Yes CN's II-XII intact bilaterally and Yes Equal, round and reactive pupils present Cognition (Neuro): normal cognition Motor exam (neuro): 5/5 motor strength present throughout Extrem General: Yes normal to inspection Psych Appearance: grossly normal Speech and movement: Normal speech and movement present Affect: Other affect and mood findings present (Consistent with alcohol intoxication) Medical Decision Making Medical Decision Making MDM Narrative: 63-year-old male who is brought to the emergency department after being found outside of the [place], acutely intoxicated. The patient states that he was drinking in a bar at the mall and he believes that he was looking for his bicycle which was parked in the back. He does not remember passing out or falling. He currently has no complaints. He does appear to be intoxicated however he does answer questions appropriately and he was able to walk in the emergency department without any issues. The patient does not want any further treatment. I told him that he was acutely intoxicated and my medical advice was that he stay here in the emergency department until the morning when he is more sober and then we can try to get him help his alcohol use disorder and help getting back to [employer] to get his bicycle. The patient disagreed with this medical plan and he wants to leave at this time I believe he is capable to understand the risks and consequences of his actions therefore he will be allowed to leave against bilingual medical receptionist. Differential Diagnosis Alcohol intoxication, electrolyte abnormalities, anemia, drug intoxication Discharge Plan Discharge Clinical Impression: Alcohol intoxication Qualifiers: Complication of substance-induced condition: uncomplicated Qualified Code(s): F10.920 - Alcohol use, unspecified with intoxication, uncomplicated Patient Disposition: Left Against Medical Advice Instructions: Alcohol Intoxication (ED) Additional Instructions: According to the carpenter inspector notes, you were found behind the [employer] mall, your intoxicated and they brought you here to the emergency depart to be evaluated. At this time I believe that you are intoxicated and I recommended that you stay here in the emergency department until you are more sober, until the morning when we can help you get back to the [employer] where you left her bicycle. You refused this medical advice and your leaving the emergency department against medical advice. Your aware that you are intoxicated and if you leave you can get injured secondary to alcohol intoxication in your aware of the possible consequences. You should get help with your alcohol use disorder. Follow-up with your doctor in 2 days. Please return to the emergency department if your symptoms get worse or if you develop any symptoms that are concerning to you. Prescriptions: No Action tamsulosin 0.4 mg capsule 0.4 mg PO DAILY 90 Days Qty: 90 2RF amoxicillin 500 mg tablet 500 mg PO TID 10 Days Qty: 30 0RF lidocaine [Lidoderm] 5 % adhesive patch,medicated 1 patch topical DAILY Qty: 15 0RF Rx Instructions: leave on most painful area for up to 12 hrs cyclobenzaprine 10 mg tablet 10 mg PO TID PRN (Reason: muscle spasm) Qty: 10 0RF finasteride 5 mg tablet 5 mg PO DAILY 90 Days Qty: 90 3RF Stand Alone Forms: Against Medical Advice
[2023-04-28] VITALS: BP 133/86; PULSE 81; RESP 16; TEMP 36.6; O2SAT 98
--- NOTE | 2023-04-28 00:46 | PC.NURSE ---
AMA form signed per pt
== END 2023-04-28 00:46 | disposition left against medical advice (07) ==
PROVIDERS: Emergency Provider Emergency Medicine Emergency Medical Services
DX: F10.920 Alcohol use, unspecified with intoxication, uncomplicated (principal); Y90.9 Presence of alcohol in blood, level not specified
CPT/HCPCS: 99282; 99285

== ENCOUNTER 2023-11-24 15:27 | Outpatient (AMB) | payer OTHER, SELFPAY ==
--- NOTE | 2023-11-24 15:31 | A.OFFVIS_ITS ---
Intake Intake Visit Reasons: 1y follow up Intake Note: Patient is Present for Follow Up Urology Medication: Finasteride, Tamsulosin Antibiotic Allergies: None Blood Thinners: None PVR: 40 Allergies No Known Allergies [No Known Allergies*] Allergy (Verified 11/24/23 15:34) Medication List - Last Reconciled 11/24/23 by Gianluca Kilgore MD amoxicillin 500 mg PO TID 10 days cyclobenzaprine 10 mg PO TID PRN finasteride 5 mg PO DAILY 90 days lidocaine 5% (Lidoderm) 1 patch topical DAILY tamsulosin 0.4 mg PO DAILY 90 days HPI HPI Comments History of Present Illness Details Rangel is a pleasant male. He is seen for the following urologic issues - lower urinary tract symptoms Continues on finasteride May cut back to Monday, Monday, Monday Reassurance provided Lower urinary tract symptoms Doing well on single agent therapy finasteride Prior episode of retention which triggered medication Prior history of UTI PSA 07/28 1.4 Therapeutic plan - continue medications and PVR [facility] Medical History H/O urinary retention Benign prostatic hyperplasia with lower urinary tract symptoms No known health problems Social History Alcohol intake: current Alcohol intake frequency: a few times a week Alcohol type: beer Patient Tobacco Use Status: Never used Tobacco Review of Systems Const Denies chills and Denies fever(s) Card Reports no additional complaints and Denies syncope Resp Denies cough GI Denies abdominal pain and Denies heartburn Reports as per HPI and Denies change in libido Neuro Denies syncope Psych Denies change in libido Endo Denies change in libido Physical Exam Const General: cooperative, healthy appearing, comfortable and no acute distress Orientation/consciousness: patient oriented x3 HEENT Face and sinus: Yes normal facial exam Mouth: moist mucous membranes Neck Neck: Yes normal visual inspection, Yes full ROM and Yes trachea midline Chest Chest palpation & inspection: normal inspection of the chest Resp Effort & Inspection: normal respiratory effort, able to speak in complete sentences and no respiratory distress GI Inspection: Yes normal to inspection Back/Spine/Pelvis Cervical Spine: normal cervical lordosis Thoracic/Lumbar Spine: thoracic and lumbar spine normal to inspection Skin General skin exam: no rashes or lesions noted Neuro General: patient oriented x3, gait normal, tone normal and moves all extremities Extrem General: Yes normal to inspection and Yes capillary refill normal Office Procedures Post Void Residual Post Residual Void Post Void Residual (PVR): 40 [id number]-[id number] Void Residual by ultrasound Assessment & Plan Assessment & Plan (1) Bladder outlet obstruction: Code(s): N32.0 - Bladder-neck obstruction Plan Finasteride - Monday, Monday, Monday Twelve month follow-up Orders: Orders AMB Post Void Residual by ultrasound Today N32.0 - Bladder-neck obstruction Medications: Changed From finasteride 5 mg PO DAILY 30 tabs 1RF 30 days N32.0 - Bladder-neck obstr uction To finasteride Take Monday, Monday, Monday 5 mg PO DAILY 90 tabs 3RF 90 days N32.0 - Bladder-neck obstruction Patient Instructions: Imaging studies, laboratory and physical exam results were discussed and reviewed in detail. No major barriers to patient understanding were identified. An opportunity to ask questions regarding the treatment plan was provided. All questions were answered. The patient expressed understanding and agreement with the above treatment plan. The patient is aware they should contact our office by phone for worsening of their current condition or the appearance of new urologic symptoms. Compliance is encouraged with any medications and followup testing that is ordered. It is a privilege to participate in the urologic care of your patient. If you have any questions or concerns regarding treatment for the above conditions, or other urologic issues, please do not hesitate to contact me. The office telephone contact is [phone]. This note is constructed using voice recognition software. While every effort has been made to ensure accuracy medical transcription editor errors may have been included. Yours sincerely, Dr Gianluca Kilgore MD, [facility] - Urology Providers of Expert, Compassionate Care for the Genitourinary System Coding Level of Care Code Est Pt Level 4 (42939) Diagnoses Bladder outlet obstruction N32.0 CPT Codes Post Residual Void - PVR CPT Code: 10293-Zfsg Void Residual by ultrasound ([id number])
== END 2023-11-24 15:54 | disposition home or self-care (01) ==
LOC: HO.HUSH 15:27
PROVIDERS: Visit Provider Urology
DX: N32.0 Bladder-neck obstruction (principal)
CPT/HCPCS: 99213

== ENCOUNTER → 2023-11-24 15:27 | Outpatient (BNVA) | payer OTHER, SELFPAY | PROVIDERS: Visit Provider Urology | DX: N32.0 Bladder-neck obstruction (principal) | CPT/HCPCS: 51798 ==

== ENCOUNTER 2024-11-26 15:39 | Outpatient (AMB) | payer OTHER, SELFPAY ==
--- NOTE | 2024-11-26 15:39 | MHC.OFFVIS ---
Intake Visit Reasons: 1y/PVR Intake Note: Patient is Present for 1Y Follow Up PVR Urology Medication: Finasteride Antibiotic Allergies: None Blood Thinners: None PVR: 40ML'S TODAY'S PVR:10ML'S Digital Marketing Assistant Required: No Allergies No Known Allergies [No Known Allergies*] Allergy (Verified 11/26/24 15:46) HPI Comments Details: Rangel is a pleasant male. He is seen for the following urologic issues - lower urinary tract symptoms Monday, Monday, Monday finasteride Repeat PSA in 12 months Lower urinary tract symptoms Doing well on single agent therapy finasteride Prior episode of retention which triggered medication Prior history of UTI PSA 07/28 1.4 Therapeutic plan - continue medications and PVR surveillance [facility] Medical History H/O urinary retention Benign prostatic hyperplasia with lower urinary tract symptoms No known health problems Social History Alcohol intake: current Alcohol intake frequency: a few times a week Alcohol type: beer Patient Tobacco Use Status: Never used Tobacco Office Procedures Post Void Residual Post Residual Void Post Void Residual (PVR): 10 [id number] Void Residual by ultrasound Results AMB Urinalysis, Automated UA Leukoctes 0 Jaja/uL Last Edit by ASTER Anderson on 11/26/24 16:10 UA Nitrite Negative Last Edit by ASTER Anderson on 11/26/24 16:10 UA Urobilinogen 0.2 mg/dL Last Edit by ASTER Anderson on 11/26/24 16:10 UA Protein 15 mg/dL Last Edit by ASTER Anderson on 11/26/24 16:10 UA pH 6.0 Last Edit by ASTER Anderson on 11/26/24 16:10 UA Blood 10 Caleb/uL Last Edit by ASTER Anderson on 11/26/24 16:10 UA Specific [place] 1.030 Last Edit by ASTER Anderson on 11/26/24 16:10 UA Ketone Negative Last Edit by ASTER Anderson on 11/26/24 16:10 UA Bilirubin 0 mg/dL Last Edit by ASTER Anderson on 11/26/24 16:10 UA Glucose 0 mg/dL Last Edit by ASTER Anderson on 11/26/24 16:10 Results Reviewed Results Reviewed: Laboratory Last Values Urine pH (Auto) 6.0 11/26/24 16:10 Specific [place] (Auto) 1.030 11/26/24 16:10 Urine Protein (Auto) 15 mg/dL 11/26/24 16:10 Glucose (UA)(Auto) 0 mg/dL 11/26/24 16:10 Urine Ketones (Auto) Negative 11/26/24 16:10 Urine Blood (Auto) 10 Caleb/uL 11/26/24 16:10 Urine Nitrite (Auto) Negative 11/26/24 16:10 Urine Bilirubin (Auto) 0 mg/dL 11/26/24 16:10 Urine Urobilinogen (Auto) 0.2 mg/dL 11/26/24 16:10 Leukocyte Esterase (Auto) 0 Jaja/uL 11/26/24 16:10 Assessment & Plan Assessment & Plan (1) Erectile dysfunction: Code(s): N52.9 - Male erectile dysfunction, unspecified Category: Medical (2) Bladder outlet obstruction: Code(s): N32.0 - Bladder-neck obstruction Category: Medical Orders: Orders AMB Urinalysis Automated Today Z13.9 - Encounter for screening, unspecified Coding Diagnoses Erectile dysfunction N52.9 Bladder outlet obstruction N32.0 CPT Codes Post Residual Void - PVR CPT Code: 36554-Fetg Void Residual by ultrasound ([id number])
== END 2024-11-26 16:29 | disposition home or self-care (01) ==
PROVIDERS: Visit Provider Urology
DX: Z13.9 Encounter for screening, unspecified (principal)

== ENCOUNTER → 2024-11-26 15:39 | Outpatient (BNVA) | payer OTHER, SELFPAY | PROVIDERS: Visit Provider Urology | DX: N52.9 Male erectile dysfunction, unspecified (principal); N32.0 Bladder-neck obstruction | CPT/HCPCS: 51798; 81003 ==

== ENCOUNTER 2025-04-19 12:32 | Emergency (ER) | payer OTHER, SELFPAY ==
[2025-04-19 12:36] VITALS: BP 158/79; PULSE 92; RESP 16; TEMP 36.7; O2SAT 99; BMI 25.1
--- NOTE | 2025-04-19 12:36 | ED_ITS ---
HPI - General Adult General Chief complaint: General Medical Stated complaint: seeking blood work, urology appt Time Seen by Provider: 04/19/25 12:37 Source: patient, RN notes reviewed and old records reviewed Mode of arrival: ambulatory Limitations: no limitations History of Present Illness ED Provider: [facility] narrative: Patient is a 64-year-old male with history of BPH with urinary retention presenting to the ED requesting routine labs to be drawn prior to his urology appointment on Monday. Denies any current physical complaints, states this is a routine urology follow up visit. States he was called by the urology office yesterday and told to have bloodwork done prior to the appointment but does not have any outpatient orders. MD complaint: requesting labs Related Data Previous Rx's ?Medication ?Instructions ?Recorded amoxicillin 500 mg tablet 500 mg PO TID 10 days #30 tabs 01/19/22 cyclobenzaprine 10 mg tablet 10 mg PO TID PRN muscle spasm #10 01/23/23 tabs lidocaine 5 % topical patch 1 patch topical DAILY #15 ea 01/23/23 (Lidoderm) finasteride 5 mg tablet 5 mg PO DAILY 90 days #90 tabs 11/24/23 tadalafil 20 mg tablet 20 mg PO ONCE PRN sexual activity 11/26/24 30 days #30 tabs Allergies Allergy/AdvReac Type Severity Reaction Status Date / Time No Known Allergies Allergy Verified 04/19/25 12:38 [No Known Allergies*] Review of Systems Review of Systems: As per HPI Yes all other systems are reviewed and are negative Constitutional: Constitutional: Reports as per HPI [facility] Past Medical History Medical History H/O urinary retention Benign prostatic hyperplasia with lower urinary tract symptoms No known health problems Social History Social History Alcohol intake: current Alcohol intake frequency: a few times a week Alcohol type: beer Patient Tobacco Use Status: Never used Tobacco Physical Exam ED Vital Signs: Vital signs have been reviewed and appear to be correct. Blood pressure normal. Heart rate normal. Respiratory rate normal. Temperature normal. Oxygen saturation normal. Const General: cooperative, healthy appearing and no acute distress Orientation/consciousness: oriented to person, oriented to place, oriented to time and patient oriented x3 Limitations: no limitations HENMT Head: Yes normocephalic and Yes atraumatic Ears: external ears normal General nose exam: Normal external nose present Face and sinus: Yes face symmetric Mouth: oropharynx normal and moist mucous membranes Throat: Yes uvula midline Eyes Pupils: Equal, round and reactive pupils present Neck Neck: Yes normal visual inspection and Yes supple Resp Effort & Inspection: normal respiratory effort and able to speak in complete sen tences Auscultation: clear to auscultation bilaterally Cardio Rate: regular rate Rhythm: regular rhythm Heart sounds: S1 normal heart sound present and S2 normal heart sound present GI Palpation (GI): Soft to palpation and nontender Auscultation: normoactive bowel sounds General: Yes no CVA tenderness Back/Spine/Pelvis Back: no CVA tenderness Skin General skin exam: elasticity normal and turgor normal Neuro General: oriented to person, oriented to place, oriented to time, patient oriented x3, moves all extremities, no focal motor deficits and CN's II-XI intact bilaterally Cranial nerves: Yes Equal, round and reactive pupils present Cognition (Neuro): normal cognition Extrem General: Yes full ROM, Yes no pedal edema and Yes no calf tenderness Psych Mental Status: mental status grossly normal Affect: normal affect Thought process: Normal thought process present Medical Decision Making Medical Decision Making [facility] Narrative: Patient is a 64-year-old male with history of BPH with urinary retention presenting to the ED requesting routine labs to be drawn prior to his urology appointment on Monday. On exam patient is awake, A+Ox3, VS WNL, afebrile, normal neurological exam without focal deficits, physical exam findings as above. Given reported symptoms and physical exam findings, initial differential includes but is not limited to electrolyte abnormality, abnormal PSA. Offered to collect urine specimen for urinalysis as well which patient declined. Discussed with patient that he can view his results via the patient portal and Dr. Kilgore will be able to access results as well. Return precautions discussed. Patient verbalized understanding of and agreement with plan. Differential Diagnosis Differential Diagnoses: The differential diagnosis associated with the presentation includes As per MDM Admission/Observation Consideration of admission/observation: Escalation of care including admission/observation considered Patient would have been admitted to the hospital had their work up had any findings where hospital admission was appropriate and their clinical presentation warranted hospital admission. External Record Review External record reviewed: Inpatient record, Office record and Outpatient record Discharge Plan Discharge Clinical Impression: Encounter for medical screening examination Patient Disposition: Home, Self-Care Additional Instructions: You presented to the emergency department for routine labs prior to an upcoming urology appointment. You can view your results on the patient portal. Keep your urology appointment as scheduled. Please see the information below about our Patient Portal. If you are not yet enrolled in the [facility] Patient Portal, you will receive an enrollment email invitation following your visit to any [facility] care setting. You may also self-enroll in the Patient Portal by visiting our website: [email or web address] The following information is required to access the Patient Portal: - Your [facility] [place] Number - Your personal home email address (must match what is in your electronic medical record, Registration staff can assist with this) - Name - Date of Capabilities of the Patient Portal: - Message some providers - View upcoming appointments - Access your health summary, medical history, and visit history - View current conditions and allergies - View procedure and lab results - View your medications, including guidelines, side effects, and precautions - Complete pre-appointment questionnaires requested by your provider - Ready summary reports of your office visits and procedures To access the Patient Portal Mobile [employer], follow these directions: - Search [employer] in the [employer] Store or [employer] Store - Download the [employer] - Search for [facility] - Enter your login/password Prescriptions: No Action amoxicillin 500 mg tablet 500 mg PO TID 10 Days Qty: 30 0RF lidocaine [Lidoderm] 5 % adhesive patch,medicated 1 patch topical DAILY Qty: 15 0RF Rx Instructions: leave on most painful area for up to 12 hrs cyclobenzaprine 10 mg tablet 10 mg PO TID PRN (Reason: muscle spasm) Qty: 10 0RF tadalafil 20 mg tablet 20 mg PO ONCE PRN (Reason: sexual activity) 30 Days Qty: 30 0RF Rx Instructions: [facility] [id number] finasteride 5 mg tablet 5 mg PO DAILY 90 Days Qty: 90 3RF Rx Instructions: Take Monday, Monday, Monday Print Language: German
[2025-04-19 12:56] VITALS: BP 158/79; PULSE 92; RESP 16; TEMP 36.7; O2SAT 99
[2025-04-19 12:57] LABS: MANUAL DIFF FLAG NO
[2025-04-19 13:01] LABS: Basophils Percent Auto 0.5 % (0-2); Eosinophils Absolute Auto 0.1 X10*3/uL (0.0-0.4); Eosinophils Percent Auto 1.5 % (0-4); Hematocrit 43.5 % (42.0-52.0); Hemoglobin 15.3 g/dl (14.0-18.0); Imm Gran Abs Auto 0.01 X10*3/uL (0.00-0.03); Imm Gran Pct Auto 0.2 % (0.0-0.4); Lymphocytes Absolute Auto 0.9 X10*3/uL (1.2-4.9); Lymphocytes Percent Auto 15.1 % (20-40); Mean Corpuscular HGB Conc 35.2 g/dl (31.0-36.0); Mean Corpuscular Hemoglobin 31.5 pg (27.0-33.0); Mean Corpuscular Volume 89.5 fL (80.0-98.0); Mean Platelet Volume 7.9 fL (9.4-12.4); Monocytes Absolute Auto 0.6 X10*3/uL (0.1-1.2); Monocytes Percent Auto 9.4 % (2-11); Neutrophils Absolute Auto 4.4 x10*3/uL (2.0-8.3); Neutrophils Percent Auto 73.3 % (45-73); Platelet Count 211 X10*3/uL (160-400); Red Blood Count 4.86 X10*6/uL (4.60-5.80); Red Cell Distribution Width 12.5 % (11.0-16.0)
[2025-04-19 13:16] LABS: Anion Gap 11 (12-20); Blood Urea Nitrogen 11 mg/dL (9-16); Calcium 9.6 mg/dL (8.4-10.2); Carbon Dioxide 28 mmol/L (22-29); Chloride 106 mmol/L (96-108); Creatinine Clr Calc Pharmacy 97.9; Estimated Glomerular Filt Rate > 60; Glucose Random 89 mg/dL (60-115); Potassium 4.2 mmol/L (3.3-5.1); Sodium 141 mmol/L (135-145)
[2025-04-19 13:38] LABS: Prostate Specific Antigen Scr 1.56 ng/mL (<0.05-4.0)
== END 2025-04-19 12:56 | disposition home or self-care (01) ==
PROVIDERS: Registered Nurse Emergency; Emergency Provider Emergency Medicine
DX: Z13.0 Encounter for screening for diseases of the blood and blood-forming organs and certain disorders involving the immune mechanism (principal); Z12.5 Encounter for screening for malignant neoplasm of prostate; N40.1 Benign prostatic hyperplasia with lower urinary tract symptoms; N52.9 Male erectile dysfunction, unspecified; N32.0 Bladder-neck obstruction; R33.9 Retention of urine, unspecified
CPT/HCPCS: 36415; 80048; 84153; 85025; 99282; 99283

== ENCOUNTER 2025-04-22 13:13 | Outpatient (AMB) | payer OTHER, SELFPAY ==
--- NOTE | 2025-04-22 13:14 | A.OFFVIS_ITS ---
Intake Visit Reasons: 3m/followup/PSA(psa?) Intake Note: Patient is present for 3M/PSA Urology Medication:FINASTERIDE Antibiotic Allergy:NONE Blood Thinner:NONE Stock Manager Required: No Allergies No Known Allergies (No Known Allergies*) Allergy (Verified 04/22/25 13:16) HPI Comments Details: Rangel is a pleasant male. He is seen for the following urologic issues - lower urinary tract symptoms - erectile dysfunction Telemedicine Evaluation 15 min Consultation DoxAdjug Andreina Video Stable PSA Monday, Monday, Monday - finasteride Repeat PSA in 12 months Erectile dysfunction Trial tadalafil prn Lower urinary tract symptoms Doing well on single agent therapy finasteride Prior episode of retention which triggered medication Prior history of UTI PSA 07/28 1.4, 04/30 1.6 Therapeutic plan - continue medications and PVR surveillance [facility] Medical History H/O urinary retention Benign prostatic hyperplasia with lower urinary tract symptoms No known health problems Social History Alcohol intake: current Alcohol intake frequency: a few times a week Alcohol type: beer Patient Tobacco Use Status: Never used Tobacco Review of Systems Const All systems reviewed & are unremarkable except as noted in HPI and below Reports no additional complaints Resp Reports no additional complaints GI Reports no additional complaints Reports as per HPI Musc Reports no additional complaints Physical Exam Telemedicine evaluation Appropriate responses Regular breathing rate and rhythm HEENT Head: Yes normal to inspection Ears: hearing grossly normal bilaterally Eyes General: appearance normal, both eyes and all related structures Neck Neck: Yes normal visual inspection Chest Chest palpation & inspection: normal inspection of the chest Resp Effort & Inspection: normal respiratory effort and able to speak in complete sentences Telehealth Telehealth Telehealth Platform: [employer] Location of provider rendering services: practice address Location of patient: address on file Patient Identification confirmed using: Name, : Yes Telehealth method: voice only Patient verbally consented to treatment: Yes Patient verbally consented to billing insurance company: Yes Patient informed of any privacy concerns related to visit: Yes Minutes spent on Phone/Video with Pt.: 15 Assessment & Plan Assessment & Plan (1) Bladder outlet obstruction: Code(s): N32.0 - Bladder-neck obstruction Category: Medical (2) Erectile dysfunction: Code(s): N52.9 - Male erectile dysfunction, unspecified Category: Medical Plan Twelve month follow-up Orders: Orders Prostate Specific Antigen 04/18/25 Z12.5 - Encounter for screening for malignant neoplasm of prostate Patient Instructions: This note is constructed using voice recognition software. While every effort has been made to ensure accuracy dry cleaning manager errors may have been included. Imaging studies, laboratory and physical exam results were discussed and reviewed in detail. No major barriers to patient understanding were identified. An opportunity to ask questions regarding the treatment plan was provided. All questions were answered. The patient expressed understanding and agreement with the above treatment plan. The patient is aware they should contact our office by phone for worsening of their current condition or the appearance of new urologic symptoms. Compliance is encouraged with any medications and followup testing that is ordered. It is a privilege to participate in the urologic care of your patient. If you have any questions or concerns regarding treatment for the above conditions, or other urologic issues, please do not hesitate to contact me. The office telephone contact is [phone]. Sincerely, Dr Gianluca Kilgore MD, [facility] - Urology Compassionate Specialist Care for the Genitourinary System Coding Level of Care Code Tele Est Pt Level 3 (75002) Complex EM visit Add On G2211 Diagnoses Bladder outlet obstruction N32.0 Erectile dysfunction N52.9
== END 2025-04-22 15:37 | disposition home or self-care (01) ==
LOC: HO.HUSH 13:13
PROVIDERS: Visit Provider Urology
DX: N32.0 Bladder-neck obstruction (principal); N52.9 Male erectile dysfunction, unspecified
CPT/HCPCS: 99213; G2211

== ENCOUNTER → 2025-04-22 13:13 | Outpatient (BNVA) | payer OTHER, SELFPAY | PROVIDERS: Visit Provider Urology | DX: Z12.5 Encounter for screening for malignant neoplasm of prostate (principal) ==

== ENCOUNTER 2025-06-14 13:46 | Inpatient (IN) | payer OTHER, SELFPAY ==
[2025-06-14 13:59] VITALS: BP 158/85; PULSE 92; RESP 18; TEMP 37.2; O2SAT 98; BMI 26.6
--- NOTE | 2025-06-14 14:08 | ED.ALCOHOL ---
HPI - Alcohol General Chief Complaint: Psychiatric Symptoms Stated Complaint: states want to Detox Time Seen by Provider: 06/14/25 15:09 Source: patient, RN notes reviewed, old records reviewed and other (family friends) Mode of arrival: ambulatory History of Present Illness ED Provider: Roro GARCIA narrative: Patient is a 65-year-old male with history of bladder outlet obstruction, daily alcohol use presenting to the ED with two close family friends who brought patient to the ED as he has been drinking more heavily for the past few weeks, and has also been expressing suicidal ideation. Friend states that patient has always lived with and cared for his father. Recently his father has become increasingly confused and filed a restraining order against the patient on 05/10, forcing him to move out of the house and into an apartment. Since that time patient has been more depressed and drinking more. Patient denies any history of alcohol withdrawal, but friend notes that he does experience withdrawal symptoms. He denies history of withdrawal seizures. He denies any active drug use. He reports suicidal ideation with plan to jump off a 40 [address] wall. Denies any homicidal ideation, auditory or visual hallucinations. He complains of generalized weakness but denies any other physical complaints. Admits to drinking just prior to arrival. Denies recent falls or other injury. Friend is also concerned about completing [place] paperwork for patient's employer, but states he does not currently have a PCP. MD complaint: alcohol intoxication Chronic alcohol use: Yes Previous visits for alcohol intoxication: Yes Recent trauma: No Associated symptoms: depression and suicidality Related Data Home Medications ?Medication ?Instructions ?Recorded ?Confirmed No Known Home Meds 06/16/25 06/16/25 Allergies Allergy/AdvReac Type Severity Reaction Status Date / Time No Known Allergies (No Known Allergy Verified 06/14/25 13:59 Allergies*) Review of Systems Review of Systems: As per HPI Yes all other systems are reviewed and are negative Constitutional: Constitutional: Reports as per HPI PMF Past Medical History Medical History H/O urinary retention Benign prostatic hyperplasia with lower urinary tract symptoms No known health problems Social History Social History Alcohol intake: current Alcohol intake frequency: 3 or more drinks per day Alcohol type: beer Patient Tobacco Use Status: Never used Tobacco Smoked in Last 30 Days: No Use of substances other than those prescribed or required for medical reasons: No Advance Directives: No Advance Directives Information Provided: Yes Do you have a plan to hurt others: No Plan Physical Exam ED Vital Signs: Vital Signs - 24 hr 06/16/25 17:07 06/16/25 21:41 06/17/25 06:24 Temperature 98.5 F 97.6 F 98.0 F Pulse Rate 87 84 89 Respiratory Rate 16 16 16 Blood Pressure 142/97 H 118/81 148/84 H Pulse Oximetry 95 100 98 Oxygen Delivery Method Room Air Room Air Room Air 06/17/25 07:30 Temperature 97.3 F Pulse Rate 100 Respiratory Rate 18 Blood Pressure 134/87 Pulse Oximetry 95 Oxygen Delivery Method Room Air BMI result Body Mass Index 26.6 Vital signs have been reviewed and appear to be correct. Blood pressure elevated. Heart rate normal. Respiratory rate normal. Temperature normal. Oxygen saturation normal. Const General: cooperative, no acute distress, alert, awake and intoxicated appearing Nutritional Appearance: average body habitus Orientation/consciousness: oriented to person, oriented to place, oriented to time and patient oriented x3 HENMT Head: Yes normocephalic and Yes atraumatic Ears: external ears normal General nose exam: Normal external nose present Face and sinus: Yes face symmetric Mouth: oropharynx normal and moist mucous membranes Throat: Yes uvula midline Eyes Pupils: Equal, round and reactive pupils present Neck Neck: Yes normal visual inspection and Yes supple Resp Effort & Inspection: normal respiratory effort and able to speak in complete sentences Auscultation: clear to auscultation bilaterally Cardio Rate: regular rate Rhythm: regular rhythm Heart sounds: S1 normal heart sound present and S2 normal heart sound present GI Palpation (GI): Soft to palpation and nontender Auscultation: normoactive bowel sounds General: Yes no CVA tenderness Back/Spine/Pelvis Back: no CVA tenderness Skin General skin exam: elasticity normal and turgor normal Neuro General: oriented to person, oriented to place, oriented to time, patient oriented x3, moves all extremities, no focal motor deficits and CN's II-XI intact bilaterally Cranial nerves: Yes Equal, round and reactive pupils present Cognition (Neuro): normal cognition Extrem General: Yes full ROM, Yes no pedal edema and Yes no calf tenderness Psych Mental Status: mental status grossly normal Affect: Anxious affect present Attitude: Guarded attititude/behavior present Thought process: Normal thought process present Thought content: Suicidality present, no homicidality, no hallucinations and Depressive thoughts present Insight: Limited insight present (Psych) Judgement: Limited judgement present (Psych) Course Course Course Narrative: This is an RME: Additional HPI, ROS, PE not included below will be deferred to primary provider. RME assessment and note performed by: Shiloh Owusu PA-C This is a 22-mziz-twu-male, with a hx of BPH, who presents to the ER seeking detox. Pt here with friends. Patient does report thoughts of harming himself without a plan. He states that he has been drinking daily for the last 5 weeks straight. Unsure of exact amount, states that previously drank 7 nips, and 4 cans of hard liquor for her to his arrival today. No history of alcohol withdrawal seizures however does report history of alcohol withdrawal symptoms. Friends report that patient was previously living with patient impaired father who recently is starting to decline cognitively, and recently placed a restraining order an patient. This caused him to become homeless. This exacerbated his stressors. Patient to be brought back to the main ED for further evaluation. Plan: Labs, UA, recovery team, further ER evaluation needed Reevaluation(s) Reevaluation #1: Time: 09:06 Date: 06/15/25 Provider: Garrison Quinteros MD Patient in physician observation for psychiatric evaluation.? No acute events reported overnight. No current complaints. VS stable.? Patient is in bed search status/pending CARE team evaluation. Will continue to monitor. Reevaluation #2: I was called today because elevated blood pressure as high as 189/123, he received 10 mg of Norvasc 0.1 mg of clonidine blood pressure is now much better 132/78. Not sure if his this due to withdrawal we will continue to observe Time: 15:58 Reevaluation #3: Time: 07:52 Date: 06/16/25 Provider: Garrison Quinteros MD Patient in physician observation for psychiatric evaluation.? No acute events reported overnight. No current complaints. VS stable.? Patient is in bed search status/pending CARE team evaluation. Will continue to monitor. Additional Reevaluation(s): Time: 06:43 Date: 06/17/25 Provider: Garrison Quinteros MD Patient in physician observation for psychiatric evaluation.? No acute events reported overnight. No current complaints. VS stable.? Patient is in bed search status/pending CARE team evaluation. Will continue to monitor. 14:12 06/17/2025 patient will be an inpatient psychiatric admission this will end the ED observation status Dr. Quinteros Medical Decision Making Medical Decision Making [facility] Narrative: Patient is a 65-year-old male with history of bladder outlet obstruction, daily alcohol use presenting to the ED with two close family friends who brought patient to the ED as he has been drinking more heavily for the past few weeks, and has also been expressing suicidal ideation. On exam patient is awake, A+Ox3, VS WNL, afebrile, normal neurological exam without focal deficits, physical exam findings as above. Given reported symptoms and physical exam findings, initial differential includes but is not limited to alcohol or drug intoxication or withdrawal, depression, suicidal ideation. Labs notable for ethanol of 308, otherwise unremarkable. Urine drug screen negative. Will place patient on physician observation pending care team evaluation when clinically sober. Differential Diagnosis Differential Diagnoses: The differential diagnosis associated with the presentation includes as per [facility] Admission/Observation Consideration of admission/observation: Escalation of care including admission/observation considered Consult Healthcare Provider Management of the patient was discussed with: Behavioral Health Provider Lab Data [facility] Lab Attestation statement: I reviewed the patient's lab results. as per [facility] 06/14/25 14:32 06/14/25 14:32 Labs: Lab Results 06/14/25 06/16/25 06/16/25 Range/Units 14:32 02:40 06:34 WBC 6.6 (4.8-10.8) X10*3/uL RBC 4.82 (4.60-5.80) X10*6/uL Hgb 15.5 (14.0-18.0) g/dl Hct 44.5 (42.0-52.0) % MCV 92.3 (80.0-98.0) fL MCH 32.2 (27.0-33.0) pg MCHC 34.8 (31.0-36.0) g/dl RDW 13.1 (11.0-16.0) % Plt Count 206 (160-400) X10*3/uL MPV 7.7 L (9.4-12.4) fL Immature Gran % (Auto) 0.3 (0.0-0.4) % Neut % (Auto) 68.3 (45-73) % Lymph % (Auto) 20.1 (20-40) % [place] % (Auto) 9.6 (2-11) % Eos % (Auto) 1.2 (0-4) % Baso % (Auto) 0.5 (0-2) % Lymph # (Auto) 1.3 (1.2-4.9) X10*3/uL [place] # (Auto) 0.6 (0.1-1.2) X10*3/uL Eos # (Auto) 0.1 (0.0-0.4) X10*3/uL Baso # (Auto) 0.0 (0.0-0.2) X10*3/uL Abs Immat Gran (auto) 0.02 (0.00-0.03) X10*3/uL Absolute Neuts (auto) 4.5 (2.0-8.3) x10*3/uL Absolute Nucleated RBC 0.000 (0.0-0.012) X10*3/uL Nucleated RBC % (auto) 0.0 (0.0-0.2) /100WBC Sodium 142 (135-145) mmol/L Potassium 4.3 (3.3-5.1) mmol/L Chloride 102 (96-108) mmol/L Carbon Dioxide 30 H (22-29) mmol/L Anion Gap 14 (12-20) BUN 14 (9-16) mg/dL Creatinine 0.79 (0.5-1.4) mg/dL Estim Creat Clear Calc 93.6 Estimated GFR > 60 Random Glucose 95 (60-115) mg/dL Calcium 8.8 D (8.4-10.2) mg/dL Total Bilirubin 0.8 (0.0-1.0) mg/dL AST 32 (5-37) U/L ALT 35 (0-40) U/L Alkaline Phosphatase 95 (39-117) U/L Troponin I High Sens 47.1 H 37.6 H (<3.5-35.0) ng/L Total Protein 7.8 (6.5-8.0) g/dL Albumin 4.7 (3.5-5.0) g/dL Urine Color Yellow Urine Appearance Clear Urine pH 6.0 (5.0-9.0) Ur Specific [place] <= 1.005 (1.005-1.025) Urine Protein Negative (Neg-Trace) mg/dL Urine Glucose (UA) Negative (Negative) mg/dL Urine Ketones Negative (Negative) mg/dL Urine Blood Negative (Negative) Urine Nitrite Negative (Negative) Ur Leukocyte Esterase Negative (Negative) Salicylates < 5.0 L (15-30) mg/dL Urine Opiates Screen Not Detected (Not Detect) Ur Buprenorphine Scrn Not Detected (Not Detect) ng/mL Ur Oxycodone Screen Not Detected (Not Detect) ng/mL Urine Methadone Screen Not Detected (Not Detect) ng/mL Urine Fentanyl Screen Not Detected (Not Detect) Acetaminophen < 3 (<30) mcg/mL Ur Barbiturates Screen Not Detected (Not Detect) Ur Phencyclidine Scrn Not Detected (Not Detect) Ur Amphetamines Screen Not Detected (Not Detect) U Benzodiazepines Scrn Not Detected (Not Detect) Urine Cocaine Screen Not Detected (Not Detect) U Marijuana (THC) Screen Not Detected (Not Detect) Ethyl Alcohol 308 H* mg/dL External Record Review External record reviewed: Inpatient record, Office record and Outpatient record Medications Administered Generic Name Dose Route Start Last Admin Trade Name Freq PRN Reason Stop Dose Admin Lorazepam 1 mg 06/15/25 15:55 06/16/25 21:41 Lorazepam 1 Mg Tablet PO 1 mg QID PRN Administration Anxiety Discontinued Medications Generic Name Dose Route Start Last Admin Trade Name Freq PRN Reason Stop Dose Admin Amlodipine Besylate 10 mg 06/15/25 13:28 06/15/25 13:34 Amlodipine Besylate 10 Mg Tablet PO 06/15/25 13:29 10 mg ONCE ONE Administration Protocol Clonidine HCl 0.1 mg 06/15/25 14:42 06/15/25 14:52 Clonidine Hcl 0.1 Mg Tablet PO 06/15/25 14:43 0.1 mg ONCE ONE Administration Protocol Diphenhydramine HCl 50 mg 06/14/25 22:37 06/14/25 22:43 Diphenhydramine Hcl 25 Mg Capsule PO 06/14/25 22:38 50 mg ONCE ONE Administration Famotidine 20 mg 06/16/25 02:31 06/16/25 02:39 Famotidine 20 Mg Tablet PO 06/16/25 02:32 20 mg ONCE ONE Administration Famotidine 20 mg 06/17/25 10:33 06/17/25 10:42 Famotidine 20 Mg Tablet PO 06/17/25 10:34 20 mg ONCE ONE Administration Lorazepam 2 mg 06/14/25 15:56 06/14/25 16:06 Lorazepam 1 Mg Tablet PO 06/14/25 15:57 2 mg ONCE ONE Administration Lorazepam 2 mg 06/14/25 22:36 06/14/25 22:43 Lorazepam 1 Mg Tablet PO 06/14/25 22:37 2 mg ONCE ONE Administration Lorazepam 2 mg 06/15/25 14:42 06/15/25 14:52 Lorazepam 1 Mg Tablet PO 06/15/25 14:43 2 mg ONCE ONE Administration Lorazepam 2 mg 06/16/25 12:50 06/16/25 12:59 Lorazepam 1 Mg Tablet PO 06/16/25 12:51 2 mg ONCE ONE Administration Melatonin 3 mg 06/15/25 21:20 06/15/25 22:01 Melatonin 3 Mg Tablet PO 06/15/25 21:21 Not Given ONCE ONE Discharge Plan Discharge Clinical Impression: Suicidal ideation, Alcohol intoxication, Depression Patient Disposition: Admitted As Inpatient Interventions: [place]-Suicide Risk Severity Scale Last Done: 06/17/25 07:43
[2025-06-14 14:41] LABS: MANUAL DIFF FLAG NO
[2025-06-14 14:42] LABS: Hematocrit 44.5 % (42.0-52.0); Hemoglobin 15.5 g/dl (14.0-18.0); Imm Gran Abs Auto 0.02 X10*3/uL (0.00-0.03); Imm Gran Pct Auto 0.3 % (0.0-0.4); Lymphocytes Absolute Auto 1.3 X10*3/uL (1.2-4.9); Mean Corpuscular HGB Conc 34.8 g/dl (31.0-36.0); Mean Corpuscular Hemoglobin 32.2 pg (27.0-33.0); Mean Corpuscular Volume 92.3 fL (80.0-98.0); NRBC Abs Auto 0.000 X10*3/uL (0.0-0.012); NRBC Pct Auto 0.0 /100WBC (0.0-0.2); Platelet Count 206 X10*3/uL (160-400); Red Blood Count 4.82 X10*6/uL (4.60-5.80); White Blood Count 6.6 X10*3/uL (4.8-10.8)
[2025-06-14 14:43] LABS: Appearance Urine Clear; Glucose Urine UA Negative (Negative); PH 6.0 (5.0-9.0); Specific Gravity - Urine <= 1.005 (1.005-1.025)
[2025-06-14 14:58] LABS: Cannabinoid Screen Urine Not Detected (Not Detect)
[2025-06-14 15:03] LABS: Alanine Aminotransferase 35 U/L (0-40); Albumin Level 4.7 g/dL (3.5-5.0); Alkaline Phosphatase 95 U/L (39-117); Anion Gap 14 (12-20); Aspartate Amino Transferase 32 U/L (5-37); Blood Urea Nitrogen 14 mg/dL (9-16); Calcium 8.8 mg/dL (8.4-10.2); Carbon Dioxide 30 mmol/L (22-29); Chloride 102 mmol/L (96-108); Creatinine Clr Calc Pharmacy 93.6; Estimated Glomerular Filt Rate > 60; Potassium 4.3 mmol/L (3.3-5.1); Sodium 142 mmol/L (135-145); Total Protein 7.8 g/dL (6.5-8.0)
[2025-06-14 15:31] LABS: Acetaminophen LAB < 3 mcg/mL (<30); Salicylate < 5.0 mg/dL (15-30)
[2025-06-14 16:00] VITALS: BP 126/68; PULSE 92; RESP 16; TEMP 36.8; O2SAT 96
[2025-06-14 18:00] VITALS: BP 131/71; PULSE 103; RESP 16; TEMP 36.6; O2SAT 96
--- NOTE | 2025-06-14 19:32 | PC.NURSE ---
Assumed care of this Pt at 1900.
[2025-06-14 20:09] VITALS: BP 134/74; PULSE 107; RESP 16; TEMP 36.4; O2SAT 94
[2025-06-15] VITALS (11 sets, daily range): BP systolic 131–189; BP diastolic 78–123; PULSE 86–108; RESP 16–20; TEMP 36.4–36.9; O2SAT 94–100
--- NOTE | 2025-06-15 05:50 | PC.NURSE ---
Pt A&Ox3, denies SI/HI/AH/VH. 1:1 sitter at bedside. Pt ambulates to BR with steady gait.
--- NOTE | 2025-06-15 07:46 | PC.NURSE ---
Assumed care of patient at 0735, appears to be in no apparent distress this am, moved from ED 8H to 7 calm and cooperative, offering no complaints to this RN. Continue plan of care for dual dx bedsearch
--- NOTE | 2025-06-15 13:26 | PC.NURSE ---
Addendum entered by Sobia Myers RN 06/15/25 13:30: plan for 10mg Norvasc and re-assess Original Note: Pt hypertensive at this time, asymptomatic, denies headache, dizziness. Denies baseline htn, not on medications for htn. CIWA score 1 at this time. Pt is also mildly tachycardic at 108. Pt denies headaches, AH/VH/TH, nausea, abd pain, is not agitated, endorses mild anxiety related to uncertainty regarding disposition. Pt is calm and cooperative, resting on couch in BH 8. MD Aldair cuevas texted at 1320
--- NOTE | 2025-06-15 14:37 | PC.NURSE ---
Addendum entered by Sobia Myers RN 06/15/25 14:57: Plan for clonidine 0.1 mg admin as well ativan 2mg, provider requesting re-check in 1 hour Original Note: 1 hour since Norvasc 10mg administration. Pressure trends: starting 189/123, 30 minute follow up 181/101, one hour follow up 180/103. CIWA score of 5 MD Quinteros made aware via tigertext at 1436
--- NOTE | 2025-06-15 15:52 | PC.NURSE ---
After clonidine and ativan administration: BP 132/78, HR 96 and updated CIWA of 2. MD Quinteros updated via [employer]
--- NOTE | 2025-06-15 22:01 | PC.NURSE ---
pt sleeping soundly, ativan and melatonin wasted with SHAISTA Rodriges
[2025-06-16 02:22] VITALS: BP 155/93; PULSE 98; RESP 17; TEMP 36.6; O2SAT 97
--- NOTE | 2025-06-16 02:23 | ECG_ITS ---
Test Reason : CHEST PAIN Blood Pressure : */* mmHG Vent. Rate : 79 BPM Atrial Rate : 79 BPM P-R Int : 186 ms QRS Dur : 80 ms QT Int : 398 ms P-R-T Axes : 67 8 72 degrees QTcB Int : 456 ms Normal sinus rhythm Minimal voltage criteria for LVH, may be normal variant ( Sokolow-[place] ) Cannot rule out Inferior infarct (cited on or before 03-Jul-2019) Abnormal ECG When compared with ECG of 16-Jun-2025 02:23, No significant change was found Referred By: Melody Owens Electronically Signed By: Josh Banks
--- NOTE | 2025-06-16 02:33 | PC.NURSE ---
PT reporting chest pain, a new symptoms. States it is non-radiating. Vitals stable. Provider notified- ekg and trop ordered. CIWA 4.
[2025-06-16 03:04] LABS: Troponin-I High Sensitivity 47.1 ng/L (<3.5-35.0)
[2025-06-16 06:00] VITALS: BP 149/84; PULSE 86; RESP 18; TEMP 36.8; O2SAT 98
--- NOTE | 2025-06-16 06:05 | ECG_ITS ---
Test Reason : CP Blood Pressure : */* mmHG Vent. Rate : 85 BPM Atrial Rate : 85 BPM P-R Int : 174 ms QRS Dur : 78 ms QT Int : 384 ms P-R-T Axes : 59 -8 61 degrees QTcB Int : 456 ms Normal sinus rhythm Inferior infarct (cited on or before 03-Jul-2019) Abnormal ECG When compared with ECG of 05-Feb-2022 18:24, WA interval has decreased Referred By: Melody Owens Electronically Signed By: Josh Banks
[2025-06-16 07:03] LABS: Troponin-I High Sensitivity 37.6 ng/L (<3.5-35.0)
--- NOTE | 2025-06-16 09:12 | PHA.MEDREC ---
Addendum entered by Anthony Rivera RPh 06/16/25 13:48: MED REC REVIEWED BY [facility] Original Note: Pharmacy Consult ? Medication Reconciliation Pharmacy reviewed med rec done by nursing. No Known Home Meds confirmed; claims match.
[2025-06-16 17:07] VITALS: BP 142/97; PULSE 87; RESP 16; TEMP 36.9; O2SAT 95
[2025-06-16 21:41] VITALS: BP 118/81; PULSE 84; RESP 16; TEMP 36.4; O2SAT 100
[2025-06-17 06:24] VITALS: BP 148/84; PULSE 89; RESP 16; TEMP 36.7; O2SAT 98
[2025-06-17 07:30] VITALS: BP 134/87; PULSE 100; RESP 18; TEMP 36.3; O2SAT 95
--- NOTE | 2025-06-17 07:43 | PC.NURSE ---
Assumed care of patient at 0645, patient appears to be in no apparent distress this am, resting in bed, respirations even and unlabored. Continue plan of care for dual dx bedsearch
--- NOTE | 2025-06-17 10:52 | MHC.CARE ---
Pt's disposition will change from DUAL DX to ADULT IPLOC as he meets the criteria to admit to an adult inpatient psychiatric unit. Section 12a in chart.
[2025-06-17 14:00] VITALS: BP 165/85; PULSE 101; RESP 20; TEMP 36.2; O2SAT 97
[2025-06-17 14:20] VITALS: BP 165/85; PULSE 102; RESP 20; TEMP 36.2; O2SAT 97
[2025-06-17 14:55] VITALS: BMI 25.6
--- NOTE | 2025-06-17 16:23 | PC.ADMIT ---
Pt is admitted via wheelchair from [place]. Pt presented to ED with SI w a plan of jumping off a 40ft wall secondary to alcohol abuse. Pt stated he has a restraning order frpm his father and spent 3 days in penitentiary 5 weeks ago. He reported he began drinking heavily since 5 weeks ago related to coping with life stressors. Upon arrival, pt was safety checked and belongings secured. Pt is anxious and cooperative. A&O x 3, confused to situation. Pt scored 1-2 on CIWA in ER but scored higher on unit. Pt received Ativan related to CIWA score. Unsteady gait and given fall risk socks. Pt is confused to present situation. Pt denies SI, HI, AVH at this time. Pt is 12b, refusing CV. Safety tool given.
[2025-06-17 18:35] VITALS: BP 125/79; PULSE 103; RESP 20; TEMP 36.1; O2SAT 96
[2025-06-17 19:42] VITALS: BP 125/79; PULSE 103; TEMP 36.1; O2SAT 96
[2025-06-18 08:00] VITALS: BP 121/70; PULSE 85; TEMP 36.3; O2SAT 96
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
[2025-06-18 09:50] LABS: Alanine Aminotransferase 39 U/L (0-40); Albumin Level 4.5 g/dL (3.5-5.0); Alkaline Phosphatase 89 U/L (39-117); Anion Gap 12 (12-20); Aspartate Amino Transferase 33 U/L (5-37); Blood Urea Nitrogen 19 mg/dL (9-16); Calcium 9.6 mg/dL (8.4-10.2); Carbon Dioxide 30 mmol/L (22-29); Chloride 101 mmol/L (96-108); Cholesterol 226 mg/dL (<200); Creatinine Clr Calc Pharmacy 76.3; Estimated Glomerular Filt Rate > 60; HDL Cholesterol 67 mg/dL (>40); Potassium 3.9 mmol/L (3.3-5.1); Sodium 139 mmol/L (135-145); Total Protein 7.5 g/dL (6.5-8.0); Triglycerides 135 mg/dL (<150)
[2025-06-18 11:22] LABS: Hemoglobin A1C 140.9150 umol/L; Total Hemoglobin (HGBA1C) 4650.2361 umol/L
[2025-06-18 12:00] VITALS: BP 136/78; PULSE 92; TEMP 36.6; O2SAT 98
[2025-06-18] MEDS: Magnesium Hydrox/Alum Hydrox 30 ML ORAL.SUSP PO (16:00)
[2025-06-18 20:00] VITALS: BP 139/79; PULSE 81; RESP 16; TEMP 36.3; O2SAT 97
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
[2025-06-19 08:00] VITALS: BP 113/56; PULSE 82; RESP 16; TEMP 36.3; O2SAT 98
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
[2025-06-19 20:22] VITALS: BP 138/72; PULSE 76; RESP 16; TEMP 37; O2SAT 97
[2025-06-20 08:00] VITALS: BP 133/79; PULSE 80; TEMP 36.4; O2SAT 95
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
[2025-06-20 20:00] VITALS: BP 140/72; PULSE 81; TEMP 36.6; O2SAT 98
[2025-06-21 08:00] VITALS: BP 133/85; PULSE 91; RESP 16; TEMP 36.1; O2SAT 97
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
[2025-06-21 11:36] LABS: Ammonia 25 umol/L (13-55)
[2025-06-21 12:17] LABS: Folate 17.6 ng/mL (> or = 4.0); Vitamin B12 1734 pg/mL (200-900)
[2025-06-21] MEDS: Magnesium Hydrox/Alum Hydrox 30 ML ORAL.SUSP PO (15:13)
[2025-06-21 18:39] VITALS: BP 128/80
[2025-06-21] MEDS: Milk of Magnesia 30 ML ORAL.SUSP PO (18:39)
[2025-06-21 20:00] VITALS: BP 120/65; PULSE 78; TEMP 36.1; O2SAT 97
[2025-06-22 08:00] VITALS: BP 131/75; PULSE 62; TEMP 36.4; O2SAT 98
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
[2025-06-22 20:00] VITALS: BP 121/61; PULSE 75; RESP 16; TEMP 37; O2SAT 97
[2025-06-22 21:08] VITALS: BP 121/61
[2025-06-23 04:13] VITALS: BP 129/67
[2025-06-23 08:00] VITALS: BP 114/57; PULSE 58; RESP 16; TEMP 36.8; O2SAT 95
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
[2025-06-23 19:36] VITALS: BP 124/61; PULSE 64; RESP 18; TEMP 36.9; O2SAT 98
[2025-06-24 08:00] VITALS: BP 107/70; PULSE 52; RESP 16; TEMP 36.6; O2SAT 99
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
[2025-06-24] MEDS: Magnesium Hydrox/Alum Hydrox 30 ML ORAL.SUSP PO (19:45)
[2025-06-24 19:52] VITALS: BP 105/57; PULSE 74; RESP 16; TEMP 36.9; O2SAT 100
[2025-06-25 08:00] VITALS: BP 113/61; PULSE 63; RESP 16; TEMP 37.3; O2SAT 98
--- NOTE | 2025-06-25 10:03 | PM.PSYDC ---
DS: Providers Provider Date of admission: 06/17/25 12:52 Primary care physician: Wyatt Physician Consults: 06/17/25 15:03 Addiction Medicine Provider Routine Consulting Provider: Addiction Covering Reason for consultation: daily drinker 10 beers and 5 nips day DS: Diagnosis Discharge Diagnosis (1) Depression: Status: Acute (2) Alcohol use disorder: Status: Acute DS: Medications Discharge Medications Home Medications: Previous Rx's ?Medication ?Instructions ?Recorded mirtazapine 7.5 mg tablet 7.5 mg PO BEDTIME #30 tabs 06/25/25 Data Data Completed and Pending Completed studies during hospitalization [Text1]: 06/18/25 06/21/25 06/21/25 09:17 11:21 11:22 Estimat Average Glucose 94 Hemoglobin A1c % 4.9 Ammonia 25 Vitamin B12 1734 H Folate 17.6 TSH 2.04 DS: Summary Time Spent with Patient Time attestation: Total time managing care of this patient today ____ minutes. Discharge Plan Discharge Anticipated Discharge Date/Time: 06/25/25 12:00 Patient Disposition: Home, Self-Care Discharge Diagnosis: Major Depression Alcohol Use Disorder Referrals: Physician,Unknown J [Primary Care Provider, Medical] - 1 Week Discharge Medications: New mirtazapine 7.5 mg Tablet 7.5 mg PO BEDTIME Qty: 30 0RF Discharge Orders: Discharge Order (Routine); Ordered 06/25/25 Ordered By: Diane Luna Diet: Advance to usual diet Activity on Discharge: As tolerated Stand Alone Forms: Patient Portal Discharge page, Community Support Print Language: Djiboutian Care Plan Goals: Abstinence from Alcohol Mood and Behavioral Stabilization Health Concerns: Alcohol Use Unstable mood and behaviors Plan of Treatment: [facility] has declined medications, except for medication to help with sleep, which was given. [facility] has declined referrals Protective Services has initiated an investigation to assist [facility] in protection from community identified providers Assessment: Denies SI,HI,AH,VH No sx of overt greg,psychosis Declines further treatment
== END 2025-06-25 10:40 | disposition home or self-care (01) | DRG 751 ==
LOC: HO.ED 06-16 17:06 → HO.PM5 06-17 13:13
PROVIDERS: Emergency Medicine; Physician Assistant Medical; Admitting Provider Psychiatry & Neurology Psychiatry; Emergency Provider Emergency Medicine; Visit Provider Clinical Nurse Specialist Psychiatric/Mental Health, Adult
DX: F32.A Depression, unspecified (principal); R45.851 Suicidal ideations; F10.929 Alcohol use, unspecified with intoxication, unspecified; Y90.8 Blood alcohol level of 240 mg/100 ml or more; Z79.899 Other long term (current) drug therapy
CPT/HCPCS: 36415; 80053; 80061; 80143; 80179; 80307; 81003; 82140; 82607; 82746; 83036; 84443; 84484; 85025; 93005; 99285; S9485

== ENCOUNTER → 2025-06-16 02:23 | Outpatient (BNV) | payer OTHER, SELFPAY | PROVIDERS: Emergency Provider Emergency Medicine Emergency Medical Services; Visit Provider Internal Medicine Cardiovascular Disease | DX: I25.2 Old myocardial infarction (principal); R94.31 Abnormal electrocardiogram [ECG] [EKG]; R07.9 Chest pain, unspecified | CPT/HCPCS: 93010 ==

== ENCOUNTER → 2025-06-17 12:52 | Outpatient (BNV) | payer OTHER, SELFPAY | PROVIDERS: Admitting Provider Psychiatry & Neurology Psychiatry; Emergency Provider Emergency Medicine; Visit Provider Nurse Practitioner Family | DX: F32.2 Major depressive disorder, single episode, severe without psychotic features (principal); F10.90 Alcohol use, unspecified, uncomplicated | CPT/HCPCS: 90792; 99231; 99232 ==

== ENCOUNTER 2025-07-25 16:51 | Emergency (ER) | payer OTHER, SELFPAY ==
[2025-07-25 17:04] VITALS: BP 178/98; PULSE 120; RESP 20; TEMP 36.2; O2SAT 97; BMI 25.1
--- NOTE | 2025-07-25 17:08 | ECG_ITS ---
Test Reason : WEAKNESS Blood Pressure : */* mmHG Vent. Rate : 118 BPM Atrial Rate : 118 BPM P-R Int : 160 ms QRS Dur : 78 ms QT Int : 318 ms P-R-T Axes : 67 -16 72 degrees QTcB Int : 445 ms Sinus tachycardia Possible Inferior infarct (cited on or before 03-Jul-2019) Abnormal ECG When compared with ECG of 16-Jun-2025 06:12, Vent. rate has increased by 39 bpm Referred By: Keyon Monroe Electronically Signed By: KRUNAL SILVA
--- NOTE | 2025-07-25 17:08 | ED_ITS ---
HPI - General Adult General Chief complaint: ETOH/Substance Use Stated complaint: alcohol withdrawal Related Data Previous Rx's ?Medication ?Instructions ?Recorded mirtazapine 7.5 mg tablet 7.5 mg PO BEDTIME #30 tabs 0 06/25/25 chlordiazepoxide HCl 25 mg capsule 25 mg PO BID PRN al cohol 07/28/25 withdrawal 5 days #20 caps Allergies Allergy/AdvReac Type Severity Reaction Status Date / Time No Known Allergies (No Known Allergy Verified 07/29/25 15:09 Allergies*) [facility] Past Medical History Medical History H/O urinary retention Benign prostatic hyperplasia with lower urinary tract symptoms No known health problems Social History Social History Household Members: None Housing: Apartment Do you presently have visiting nurse or other home services: No Alcohol intake: current Alcohol intake frequency: 3 or more drinks per day Alcohol type: beer Patient Tobacco Use Status: Never used Tobacco e-Cigarette/Vaping Use: Never Used Second Hand Smoke Exposure: No Advance Directives: No Do you have a plan to hurt others: No Plan service: No Sexual orientation: Straight/Heterosexual Physical Exam ED Vital Signs: BMI result Body Mass Index 25.1 Course Course Course Narrative: RME, this is a rapid medical exam performed by Rojelio Monroe please refer to primary provider for complete H&P- 65-year-old male presents for evaluation of alcohol detox. Patient reports binge drinking this week. Last drink was this morning. Denies any history of alcohol withdrawal. Plan for labs Medical Decision Making Lab Data 07/25/25 17:18 07/25/25 17:18 Labs: Lab Results 07/25/25 Range/Units 17:18 WBC 6.2 (4.8-10.8) X10*3/uL RBC 5.27 (4.60-5.80) X10*6/uL Hgb 17.1 (14.0-18.0) g/dl Hct 46.3 (42.0-52.0) % MCV 87.9 (80.0-98.0) fL MCH 32.4 (27.0-33.0) pg MCHC 36.9 H (31.0-36.0) g/dl RDW 12.3 (11.0-16.0) % Plt Count 254 (160-400) X10*3/uL MPV 7.4 L (9.4-12.4) fL Immature Gran % (Auto) 0.3 (0.0-0.4) % Neut % (Auto) 76.5 H (45-73) % Lymph % (Auto) 15.9 L (20-40) % [place] % (Auto) 6.6 (2-11) % Eos % (Auto) 0.2 (0-4) % Baso % (Auto) 0.5 (0-2) % Lymph # (Auto) 1.0 L (1.2-4.9) X10*3/uL [place] # (Auto) 0.4 (0.1-1.2) X10*3/uL Eos # (Auto) 0.0 (0.0-0.4) X10*3/uL Baso # (Auto) 0.0 (0.0-0.2) X10*3/uL Abs Immat Gran (auto) 0.02 (0.00-0.03) X10*3/uL Absolute Neuts (auto) 4.8 (2.0-8.3) x10*3/uL Absolute Nucleated RBC 0.000 (0.0-0.012) X10*3/uL Nucleated RBC % (auto) 0.0 (0.0-0.2) /100WBC Sodium 142 (135-145) mmol/L Potassium 4.2 (3.3-5.1) mmol/L Chloride 103 (96-108) mmol/L Carbon Dioxide 26 (22-29) mmol/L Anion Gap 17 (12-20) BUN 14 (9-16) mg/dL Creatinine 0.82 (0.5-1.4) mg/dL Estim Creat Clear Calc 93.1 Estimated GFR > 60 Random Glucose 101 (60-115) mg/dL Calcium 8.7 D (8.4-10.2) mg/dL Total Bilirubin 1.1 H (0.0-1.0) mg/dL AST 41 H (5-37) U/L ALT 34 (0-40) U/L Alkaline Phosphatase 111 (39-117) U/L Total Protein 7.7 (6.5-8.0) g/dL Albumin 4.7 (3.5-5.0) g/dL Lipase 19 (8-78) U/L Ethyl Alcohol 280 mg/dL Discharge Plan Discharge Clinical Impression: Alcohol use disorder Patient Disposition: Left W/O Completing Treatment Prescriptions: No Action mirtazapine 7.5 mg Tablet 7.5 mg PO BEDTIME Qty: 30 0RF chlordiazepoxide HCl 25 mg capsule 25 mg PO BID PRN (Reason: alcohol withdrawal) 5 Days Qty: 20 0RF Rx Instructions: 50mg of chlordiazepoxide every 8 hours for two days, decrease to 25mg every 8 hours for another two days followed by 25mg PRN as needed. Discharge Date/Time: 07/25/25 19:18
[2025-07-25 17:22] LABS: MANUAL DIFF FLAG NO
[2025-07-25 17:23] LABS: Hematocrit 46.3 % (42.0-52.0); Hemoglobin 17.1 g/dl (14.0-18.0); Imm Gran Abs Auto 0.02 X10*3/uL (0.00-0.03); Imm Gran Pct Auto 0.3 % (0.0-0.4); Lymphocytes Absolute Auto 1.0 X10*3/uL (1.2-4.9); Mean Corpuscular HGB Conc 36.9 g/dl (31.0-36.0); Mean Corpuscular Hemoglobin 32.4 pg (27.0-33.0); Mean Corpuscular Volume 87.9 fL (80.0-98.0); NRBC Abs Auto 0.000 X10*3/uL (0.0-0.012); NRBC Pct Auto 0.0 /100WBC (0.0-0.2); Platelet Count 254 X10*3/uL (160-400); Red Blood Count 5.27 X10*6/uL (4.60-5.80); White Blood Count 6.2 X10*3/uL (4.8-10.8)
[2025-07-25 17:38] LABS: Alanine Aminotransferase 34 U/L (0-40); Albumin Level 4.7 g/dL (3.5-5.0); Alkaline Phosphatase 111 U/L (39-117); Anion Gap 17 (12-20); Aspartate Amino Transferase 41 U/L (5-37); Blood Urea Nitrogen 14 mg/dL (9-16); Calcium 8.7 mg/dL (8.4-10.2); Carbon Dioxide 26 mmol/L (22-29); Chloride 103 mmol/L (96-108); Creatinine Clr Calc Pharmacy 93.1; Estimated Glomerular Filt Rate > 60; Lipase 19 U/L (8-78); Potassium 4.2 mmol/L (3.3-5.1); Sodium 142 mmol/L (135-145); Total Protein 7.7 g/dL (6.5-8.0)
== END 2025-07-25 19:18 | disposition left against medical advice (07) ==
PROVIDERS: Physician Assistant; Emergency Provider Emergency Medicine
DX: F10.929 Alcohol use, unspecified with intoxication, unspecified (principal); R00.0 Tachycardia, unspecified; Y90.8 Blood alcohol level of 240 mg/100 ml or more; Z51.81 Encounter for therapeutic drug level monitoring; Z79.899 Other long term (current) drug therapy
CPT/HCPCS: 36415; 80053; 80307; 83690; 85025; 93005; 99283

== ENCOUNTER → 2025-07-25 17:08 | Outpatient (BNV) | payer OTHER, SELFPAY | PROVIDERS: Emergency Provider Emergency Medicine; Visit Provider Internal Medicine | DX: R00.0 Tachycardia, unspecified (principal); I25.2 Old myocardial infarction | CPT/HCPCS: 93010 ==

== ENCOUNTER 2025-07-28 09:52 | Emergency (ER) | payer OTHER, SELFPAY ==
[2025-07-28 09:55] VITALS: BP 143/102; PULSE 140; RESP 18; TEMP 36.1; O2SAT 97; BMI 25.1
[2025-07-28 10:38] VITALS: BP 158/94; PULSE 131; RESP 16; O2SAT 97
--- NOTE | 2025-07-28 10:47 | PC.NURSE ---
Addendum entered by Maryse Malagon RN 07/28/25 10:48: Patient presents with generalized abdominal pain secondary alcohol use. States he missed 5 days of work and is requesting a work note. Patient seen on the 07/25 for alcohol detox. Patient alert and oriented. Tachycardic with some visible tremors and appears to be starting to withdraw. Patient states drink 4-5 25 ounce beers and last drink was last night. Respirations even and non-labored. Abdomen soft, with positive bowel sounds. continues to c/o abdominal pain. Positive pedal pulses with no edema noted. Original Note: Medical History H/O urinary retention Benign prostatic hyperplasia with lower urinary tract symptoms No known health problems Depression Alcohol use disorder
--- NOTE | 2025-07-28 11:24 | ED_ITS ---
[facility] - General Adult General Chief complaint: Abdominal Pain Stated complaint: stomach ache Time Seen by Provider: 07/28/25 10:53 Source: patient Mode of arrival: ambulatory Limitations: no limitations History of Present Illness ED Provider: HPI narrative: 65-year-old male with a history of alcohol use disorder, drinks 5 beers a day, states has had abdominal discomfort last week and then go to work wanted to return to work today but was told that he needs a work note if he misses more than 3 days, he states his abdomen is better, and states for the past 3 days he has had some withdrawal symptoms and he was noted to be tachycardic, no SI or HI, no interested in detox, initially he did not want any blood work just wanted a work note. Related Data Previous Rx's ?Medication ?Instructions ?Recorded mirtazapine 7.5 mg tablet 7.5 mg PO BEDTIME #30 tabs 0 06/25/25 chlordiazepoxide HCl 25 mg capsule 25 mg PO BID PRN al cohol 07/28/25 withdrawal 5 days #20 caps Allergies Allergy/AdvReac Type Severity Reaction Status Date / Time No Known Allergies (No Known Allergy Verified 07/28/25 10:00 Allergies*) Review of Systems 2 Constitutional: Constitutional: Reports as per [facility] Past Medical History Medical History H/O urinary retention Benign prostatic hyperplasia with lower urinary tract symptoms No known health problems Social History Social History Household Members: None Housing: Apartment Do you presently have visiting nurse or other home services: No Alcohol intake: current Alcohol intake frequency: 3 or more drinks per day Alcohol type: beer Patient Tobacco Use Status: Never used Tobacco Smoked in Last 30 Days: No e-Cigarette/Vaping Use: Never Used Second Hand Smoke Exposure: No Use of substances other than those prescribed or required for medical reasons: No Advance Directives: No Advance Directives Information Provided: No service: No Sexual orientation: Straight/Heterosexual Physical Exam ED Vital Signs: Vital Signs - 24 hr 07/28/25 09:55 07/28/25 10:38 Temperature 97 F Pulse Rate 140 H 131 H Respiratory Rate 18 16 Blood Pressure 143/102 H 158/94 H Pulse Oximetry 97 97 Oxygen Delivery Method Room Air BMI result Body Mass Index 25.1 Const Other: * Gen: ?Patient is not diaphoretic, he is somewhat shaky, alert and oriented x4 * HEENT: No jaundice * Neck: Supple, no LAD * CV: Tachycardic and regular * Resp: ?No wheezing rales rhonchi no stridor moving air well * Abd: ?Bowel sounds are present, no tenderness no rebound no rigidity * MSK: FROM, strength 5/5 all extremities * Skin: Warm, dry, intact, * Neuro: ?Alert and oriented x3, moving upper and lower extremities symmetrically, no obvious facial asymmetry noted ambulatory with a steady gait Medical Decision Making Medical Decision Making MDM Narrative: 11:27 AM 07/28/2025 (Dr. Paul Sumner): Patient clearly has a degree of alcohol withdrawal, he has no interested in detox, came here by electric scooter, ambulated with a steady gait, he was noted to be somewhat tachycardic and hypotensive, of her medication took help calm him down, told him that I will give him work note but I do want to make sure he did not have any evidence for dehydration, electrolyte derangements or pancreatitis, he is planning to return to work tomorrow, if workup is reassuring I plan to discharge him with a Librium taper and return precautions. He has had no history of alcohol withdrawal seizures Differential Diagnosis Differential Diagnoses: The differential diagnosis associated with the presentation includes (Alcohol withdrawal, seizures, electrolyte derangements, dehydration for pancreatitis) Admission/Observation Consideration of admission/observation: Escalation of care including admission/observation considered Lab Data 07/28/25 11:50 07/28/25 11:50 Labs: Lab Results 07/28/25 Range/Units 11:50 WBC 12.7 H (4.8-10.8) X10*3/uL RBC 5.01 (4.60-5.80) X10*6/uL Hgb 16.3 (14.0-18.0) g/dl Hct 45.0 (42.0-52.0) % MCV 89.8 (80.0-98.0) fL MCH 32.5 (27.0-33.0) pg MCHC 36.2 H (31.0-36.0) g/dl RDW 12.2 (11.0-16.0) % Plt Count 198 (160-400) X10*3/uL MPV 8.2 L (9.4-12.4) fL Immature Gran % (Auto) 0.6 H (0.0-0.4) % Neut % (Auto) 87.3 H (45-73) % Lymph % (Auto) 5.0 L (20-40) % [place] % (Auto) 6.9 (2-11) % Eos % (Auto) 0.0 (0-4) % Baso % (Auto) 0.2 (0-2) % Lymph # (Auto) 0.6 L (1.2-4.9) X10*3/uL [place] # (Auto) 0.9 (0.1-1.2) X10*3/uL Eos # (Auto) 0.0 (0.0-0.4) X10*3/uL Baso # (Auto) 0.0 (0.0-0.2) X10*3/uL Abs Immat Gran (auto) 0.08 H (0.00-0.03) X10*3/uL Absolute Neuts (auto) 11.1 H (2.0-8.3) x10*3/uL Absolute Nucleated RBC 0.000 (0.0-0.012) X10*3/uL Nucleated RBC % (auto) 0.0 (0.0-0.2) /100WBC Sodium 137 (135-145) mmol/L Potassium 3.8 (3.3-5.1) mmol/L Chloride 100 (96-108) mmol/L Carbon Dioxide 30 H (22-29) mmol/L Anion Gap 11 L (12-20) BUN 15 (9-16) mg/dL Creatinine 0.73 (0.5-1.4) mg/dL Estim Creat Clear Calc 104.5 Estimated GFR > 60 Random Glucose 122 H (60-115) mg/dL Calcium 9.5 D (8.4-10.2) mg/dL Total Bilirubin 3.0 H (0.0-1.0) mg/dL AST 56 H (5-37) U/L ALT 51 H (0-40) U/L Alkaline Phosphatase 126 H (39-117) U/L Total Protein 7.6 (6.5-8.0) g/dL Albumin 4.8 (3.5-5.0) g/dL Lipase 35 (8-78) U/L Discharge Plan Discharge Clinical Impression: Alcohol abuse with withdrawal, Alcohol use disorder, Alcoholic liver disease Patient Disposition: Home, Self-Care Additional Instructions: Take the following medication to help with alcohol withdrawal 50mg of chlordiazepoxide every 8 hours for two days, then decrease to 25mg every 8 hours for another two days followed by 25mg PRN as needed. Do not drive, operate heavy machinery while taking this medication, this is medication to help with alcohol withdrawals and to prevent you from having seizures, ultimately I recommend that you follow through with detox Your liver enzymes are elevated today indicating that there is some damage to the liver from the binge that you have just had, an order for you not to develop any chronic diseases I urge you to stop drinking alcohol and as I discussed with the you do not work, operate heavy machinery, or drive a scooter while taking medications for withdrawals you were prescribed Prescriptions: New chlordiazepoxide HCl 25 mg capsule 25 mg PO BID PRN (Reason: alcohol withdrawal) 5 Days Qty: 20 0RF Rx Instructions: 50mg of chlordiazepoxide every 8 hours for two days, decrease to 25mg every 8 hours for another two days followed by 25mg PRN as needed. No Action mirtazapine 7.5 mg Tablet 7.5 mg PO BEDTIME Qty: 30 0RF Stand Alone Forms: Work/School Release Print Language: Welsh
[2025-07-28 11:58] LABS: MANUAL DIFF FLAG NO
[2025-07-28 12:01] LABS: Hematocrit 45.0 % (42.0-52.0); Hemoglobin 16.3 g/dl (14.0-18.0); Imm Gran Abs Auto 0.08 X10*3/uL (0.00-0.03); Imm Gran Pct Auto 0.6 % (0.0-0.4); Lymphocytes Absolute Auto 0.6 X10*3/uL (1.2-4.9); Mean Corpuscular HGB Conc 36.2 g/dl (31.0-36.0); Mean Corpuscular Hemoglobin 32.5 pg (27.0-33.0); Mean Corpuscular Volume 89.8 fL (80.0-98.0); NRBC Abs Auto 0.000 X10*3/uL (0.0-0.012); NRBC Pct Auto 0.0 /100WBC (0.0-0.2); Platelet Count 198 X10*3/uL (160-400); Red Blood Count 5.01 X10*6/uL (4.60-5.80); White Blood Count 12.7 X10*3/uL (4.8-10.8)
[2025-07-28 12:18] LABS: Alanine Aminotransferase 51 U/L (0-40); Albumin Level 4.8 g/dL (3.5-5.0); Alkaline Phosphatase 126 U/L (39-117); Anion Gap 11 (12-20); Aspartate Amino Transferase 56 U/L (5-37); Blood Urea Nitrogen 15 mg/dL (9-16); Calcium 9.5 mg/dL (8.4-10.2); Carbon Dioxide 30 mmol/L (22-29); Chloride 100 mmol/L (96-108); Creatinine Clr Calc Pharmacy 104.5; Estimated Glomerular Filt Rate > 60; Lipase 35 U/L (8-78); Potassium 3.8 mmol/L (3.3-5.1); Sodium 137 mmol/L (135-145); Total Protein 7.6 g/dL (6.5-8.0)
[2025-07-28 12:59] VITALS: BP 158/94; PULSE 131; RESP 16; TEMP 36.7; O2SAT 97
== END 2025-07-28 13:00 | disposition home or self-care (01) ==
PROVIDERS: Emergency Provider Emergency Medicine
DX: F10.139 Alcohol abuse with withdrawal, unspecified (principal); K70.9 Alcoholic liver disease, unspecified
CPT/HCPCS: 36415; 80053; 83690; 85025; 99283; 99284

== ENCOUNTER 2025-07-29 14:58 | Emergency (ER) | payer OTHER, SELFPAY ==
[2025-07-29 15:03] VITALS: BP 160/98; PULSE 122; RESP 18; TEMP 36.6; O2SAT 98; BMI 25.1
--- NOTE | 2025-07-29 15:06 | ED_ITS ---
HPI - General Adult General Chief complaint: General Medical Stated complaint: Seen yesterday, follow up Time Seen by Provider: 07/29/25 17:03 Source: patient, RN notes reviewed and old records reviewed Mode of arrival: ambulatory Limitations: no limitations History of Present Illness ED Provider: Mabel GARCIA narrative: 65-year-old male presents for evaluation of alcohol use disorder Patient reports he is seeking detox from alcohol abuse pain He was seen here yesterday and discharged with Librium. 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 The patient reports feeling better than he had yesterday, his last drink was 2 days ago. He complains of shakes, anxiety and nausea He is seeking detox so he may be cleared back to work Related Data Previous Rx's ?Medication ?Instructions ?Recorded mirtazapine 7.5 mg tablet 7.5 mg PO BEDTIME #30 tabs 0 06/25/25 chlordiazepoxide HCl 25 mg capsule 25 mg PO BID PRN al cohol 07/28/25 withdrawal 5 days #20 caps Allergies Allergy/AdvReac Type Severity Reaction Status Date / Time No Known Allergies (No Known Allergy Verified 07/29/25 15:09 Allergies*) Review of Systems 2 Constitutional: Constitutional: Denies body ache(s), Denies chills and Denies fever(s) Eyes: Eyes: Denies blurry vision ENT: Denies vertigo and Denies dizziness Cardiovascular: Cardiovascular: Denies chest pain and Denies dyspnea on exertion Respiratory: Respiratory: Denies cough and Denies dyspnea on exertion Gastrointestinal: Gastrointestinal: Denies abdominal pain, Reports nausea and Denies vomiting Musculoskeletal: Musculoskeletal: Denies back pain Integumentary/Breasts: Skin/Breast: Denies rash Neurologic: Denies vertigo and Denies dizziness REPLACED BY [facility] Past Medical History Medical History H/O urinary retention Benign prostatic hyperplasia with lower urinary tract symptoms No known health problems Social History Social History Household Members: None Housing: Apartment Do you presently have visiting nurse or other home services: No Alcohol intake: current Alcohol intake frequency: 3 or more drinks per day Alcohol type: beer Patient Tobacco Use Status: Never used Tobacco e-Cigarette/Vaping Use: Never Used Second Hand Smoke Exposure: No service: No Sexual orientation: Straight/Heterosexual Physical Exam ED Vital Signs: Vital Signs - 24 hr 07/29/25 15:03 07/29/25 17:06 Temperature 98 F 98.7 F Pulse Rate 122 H 95 Respiratory Rate 18 18 Blood Pressure 160/98 H 133/86 Pulse Oximetry 98 96 Oxygen Delivery Method Room Air BMI result Body Mass Index 25.1 Const General: healthy appearing, comfortable, no acute distress, alert and awake Nutritional Appearance: well nourished Orientation/consciousness: patient oriented x3 HENMT Head: Yes normocephalic and Yes atraumatic Eyes Eyelids: Yes eyelids normal Conjunctivae: conjunctivae normal Sclerae: sclerae normal Corneas: corneas normal Pupils: Equal, round and reactive pupils present EOM: EOMs intact bilaterally Neck Neck: Yes full ROM Resp Effort & Inspection: normal respiratory effort, able to speak in complete sentences and not labored GI Inspection: No distended Palpation (GI): Soft to palpation, not firm, nontender, no guarding and not rigid Skin General skin exam: elasticity normal Neuro General: patient oriented x3 Cranial nerves: Yes Equal, round and reactive pupils present and Yes Bilaterally intact EOM present Cognition (Neuro): normal cognition Extrem Other: Moving all extremities well without any obvious deformities Course Course Course Narrative: This is a Rapid Medical Examination (RME) performed by Mary Yoon PA-C in triage. Full HPI, ROS, assessment and treatment plan per primary provider in the Main ED. Hx: 65 yo M hx etoh use disorder here requesting detox. last consumed etoh 2 days ago. see in ED yesterday, discharged on a benzo. attempted to return to work with a work note - employer will not let him back to work and wants him to go to detox. Plan: labs Reevaluation(s) Reevaluation #1: Patient is seen by the recovery team and will have an appoint with a comprehensive [facility] tomorrow. His vitals are stable, he is not in his significant alcohol withdrawal. He is stable for discharge and does not wish to go inpatient detox at this time Time: 18:18 Medical Decision Making Medical Decision Making [facility] Narrative: 65-year-old male with a history of alcohol use disorder, depression and erectile dysfunction presents for evaluation of detox. The patient is requesting to go to detox for alcohol so that he may be cleared to go back to work. He feels stuck in the sense that he does not wish to take the Librium he was prescribed yesterday that was recommended by the ER provider he saw because he could not use heavy machinery while using it. And his work will not let him return to employment while he is still having symptoms of alcohol withdrawal. The patient will be referred to the care team. Differential Diagnosis Differential Diagnoses: The differential diagnosis associated with the presentation includes Alcohol use disorder Alcohol withdrawal Acute alcohol intoxication Substance abuse Lab Data [facility] Lab Attestation statement: I reviewed the patient's lab results. No leukocytosis or anemia. Normal platelet count. Chemistries significant for a slightly elevated BUN to 26 which could be due to dehydration and mild alcohol withdrawal. The patient's LFTs are elevated but down trending from yesterday. His bilirubin decreased from 3.0 down to 1.8 he has no abdominal pain or tenderness. Ethanol level today is undetectable 07/29/25 16:26 07/29/25 16:26 Labs: Lab Results 07/29/25 Range/Units 16:26 WBC 9.6 (4.8-10.8) X10*3/uL RBC 4.69 (4.60-5.80) X10*6/uL Hgb 15.3 (14.0-18.0) g/dl Hct 43.2 (42.0-52.0) % MCV 92.1 (80.0-98.0) fL MCH 32.6 (27.0-33.0) pg MCHC 35.4 (31.0-36.0) g/dl RDW 12.4 (11.0-16.0) % Plt Count 181 (160-400) X10*3/uL MPV 8.4 L (9.4-12.4) fL Immature Gran % (Auto) 0.4 (0.0-0.4) % Neut % (Auto) 78.3 H (45-73) % Lymph % (Auto) 11.8 L (20-40) % [place] % (Auto) 8.4 (2-11) % Eos % (Auto) 0.8 (0-4) % Baso % (Auto) 0.3 (0-2) % Lymph # (Auto) 1.1 L (1.2-4.9) X10*3/uL [place] # (Auto) 0.8 (0.1-1.2) X10*3/uL Eos # (Auto) 0.1 (0.0-0.4) X10*3/uL Baso # (Auto) 0.0 (0.0-0.2) X10*3/uL Abs Immat Gran (auto) 0.04 H (0.00-0.03) X10*3/uL Absolute Neuts (auto) 7.5 (2.0-8.3) x10*3/uL Absolute Nucleated RBC 0.000 (0.0-0.012) X10*3/uL Nucleated RBC % (auto) 0.0 (0.0-0.2) /100WBC Sodium 139 (135-145) mmol/L Potassium 4.6 D (3.3-5.1) mmol/L Chloride 101 (96-108) mmol/L Carbon Dioxide 31 H (22-29) mmol/L Anion Gap 12 (12-20) BUN 26 H (9-16) mg/dL Creatinine 0.92 (0.5-1.4) mg/dL Estim Creat Clear Calc 82.9 Estimated GFR > 60 Random Glucose 98 (60-115) mg/dL Calcium 9.4 (8.4-10.2) mg/dL Magnesium 2.1 (1.6-2.6) mg/dL Total Bilirubin 1.8 H (0.0-1.0) mg/dL AST 45 H (5-37) U/L ALT 43 H (0-40) U/L Alkaline Phosphatase 109 (39-117) U/L Total Protein 7.4 (6.5-8.0) g/dL Albumin 4.5 (3.5-5.0) g/dL Lipase 55 (8-78) U/L Urine Color Dark Yellow Urine Appearance Clear Urine pH 5.5 (5.0-9.0) Ur Specific [place] >= 1.030 H (1.005-1.025) Urine Protein 30 (1+) H (Neg-Trace) mg/dL Urine Glucose (UA) Negative (Negative) mg/dL Urine Ketones Trace (Negative) mg/dL Urine Blood Trace H (Negative) Urine Nitrite Negative (Negative) Ur Leukocyte Esterase Trace H (Negative) Urine RBC 0-2 (0-2) /HPF Urine WBC 0-5 (0-5) /HPF Ur Squamous Epith Cells 0-2 (0-2) /HPF Urine Bacteria None Seen (None Seen) Hyaline Casts 3-5 (0-2) /LPF Urine Opiates Screen Not Detected (Not Detect) Ur Buprenorphine Scrn Not Detected (Not Detect) ng/mL Ur Oxycodone Screen Not Detected (Not Detect) ng/mL Urine Methadone Screen Not Detected (Not Detect) ng/mL Urine Fentanyl Screen Not Detected (Not Detect) Ur Barbiturates Screen Not Detected (Not Detect) Ur Phencyclidine Scrn Not Detected (Not Detect) Ur Amphetamines Screen Not Detected (Not Detect) U Benzodiazepines Scrn Not Detected (Not Detect) Urine Cocaine Screen Not Detected (Not Detect) U Marijuana (THC) Screen Not Detected (Not Detect) Ethyl Alcohol < 10 mg/dL Discharge Plan Discharge Clinical Impression: Alcohol use disorder Patient Disposition: Home, Self-Care Instructions: Abuse of Alcohol (ED) Additional Instructions: You have an appointment with the [facility] tomorrow morning at 8:30 a.m.. You do not appear to be in severe alcohol withdrawal Return for new or worsening symptoms Prescriptions: No Action mirtazapine 7.5 mg Tablet 7.5 mg PO BEDTIME Qty: 30 0RF chlordiazepoxide HCl 25 mg capsule 25 mg PO BID PRN (Reason: alcohol withdrawal) 5 Days Qty: 20 0RF Rx Instructions: 50mg of chlordiazepoxide every 8 hours for two days, decrease to 25mg every 8 hours for another two days followed by 25mg PRN as needed. Referrals: [facility] [Provider Group] Referral Note: alcohol use disorder Stand Alone Forms: Work/School Release Print Language: Sammarinese
[2025-07-29 16:35] LABS: MANUAL DIFF FLAG NO
[2025-07-29 16:36] LABS: Hematocrit 43.2 % (42.0-52.0); Hemoglobin 15.3 g/dl (14.0-18.0); Imm Gran Abs Auto 0.04 X10*3/uL (0.00-0.03); Imm Gran Pct Auto 0.4 % (0.0-0.4); Lymphocytes Absolute Auto 1.1 X10*3/uL (1.2-4.9); Mean Corpuscular HGB Conc 35.4 g/dl (31.0-36.0); Mean Corpuscular Hemoglobin 32.6 pg (27.0-33.0); Mean Corpuscular Volume 92.1 fL (80.0-98.0); NRBC Abs Auto 0.000 X10*3/uL (0.0-0.012); NRBC Pct Auto 0.0 /100WBC (0.0-0.2); Platelet Count 181 X10*3/uL (160-400); Red Blood Count 4.69 X10*6/uL (4.60-5.80); White Blood Count 9.6 X10*3/uL (4.8-10.8)
[2025-07-29 16:39] LABS: Appearance Urine Clear; Glucose Urine UA Negative (Negative); PH 5.5 (5.0-9.0); Specific Gravity - Urine >= 1.030 (1.005-1.025); UMIC TRIGGER UACC YES
[2025-07-29 16:54] LABS: Alanine Aminotransferase 43 U/L (0-40); Albumin Level 4.5 g/dL (3.5-5.0); Alkaline Phosphatase 109 U/L (39-117); Anion Gap 12 (12-20); Aspartate Amino Transferase 45 U/L (5-37); Blood Urea Nitrogen 26 mg/dL (9-16); Calcium 9.4 mg/dL (8.4-10.2); Carbon Dioxide 31 mmol/L (22-29); Chloride 101 mmol/L (96-108); Creatinine Clr Calc Pharmacy 82.9; Estimated Glomerular Filt Rate > 60; Lipase 55 U/L (8-78); Magnesium 2.1 mg/dL (1.6-2.6); Potassium 4.6 mmol/L (3.3-5.1); Sodium 139 mmol/L (135-145); Total Protein 7.4 g/dL (6.5-8.0)
[2025-07-29 17:00] LABS: Cannabinoid Screen Urine Not Detected (Not Detect)
--- NOTE | 2025-07-29 17:04 | PC.NURSE ---
Pt to [facility] for requests of detox, states he has been feeling down lately and wants to stop drinking. A/O x 3, denies pain. Yellow eye sclera noted. Pt reports drinking approx 4-5 beers/day and reports last drink was Monday.
[2025-07-29 17:06] VITALS: BP 133/86; PULSE 95; RESP 18; TEMP 37.1; O2SAT 96
[2025-07-29 18:39] VITALS: BP 133/86; PULSE 95; RESP 18; TEMP 37.1; O2SAT 96
== END 2025-07-29 18:39 | disposition home or self-care (01) ==
PROVIDERS: Physician Assistant Medical; Emergency Provider Emergency Medicine
DX: F33.1 Major depressive disorder, recurrent, moderate (principal); F41.1 Generalized anxiety disorder; R11.0 Nausea; F10.10 Alcohol abuse, uncomplicated; Y90.0 Blood alcohol level of less than 20 mg/100 ml; Z79.899 Other long term (current) drug therapy; Z51.81 Encounter for therapeutic drug level monitoring; Z71.41 Alcohol abuse counseling and surveillance of alcoholic
CPT/HCPCS: 36415; 80053; 80307; 81001; 83690; 83735; 85025; 99284; S9485

== ENCOUNTER 2025-07-30 08:37 | Outpatient (AMB) | payer OTHER, SELFPAY ==
[2025-07-30 08:49] VITALS: BP 126/78; PULSE 82; O2SAT 96; BMI 25.2
--- NOTE | 2025-07-30 08:49 | MHC.OFFVIS ---
Vital Signs 07/30/25 08:49 Height 5 ft 11 in Weight 181 lb BMI 25.2 BP 126/78 Pulse 82 Pulse Oximetry (%) 96 Intake Visit Reasons: MAT intake Allergies No Known Allergies (No Known Allergies*) Allergy (Verified 07/30/25 08:52) HPI Comments Details: A 65-year-old male presents for a MAT intake r/t AUD. Reports detox for 2 months ago and relapsed 2 days post discharge. At present time reports no alcohol consumption since Monday and is coping with stress related to a work concern. Denies use of opiates, and other substances. He has been to [facility] ED on July 28 for symptoms of alcohol withdrawals and was discharged with a chlordiazepoxide taper and a note to return to work. The patient provided all the discharge paperwork to employer in addition to the work note and states my job doesn't want me back unless I complete a detox program for the 2nd time. Support Services discussed including mental health and peer recovery to which the patient declines and states I can do this on my own. At present time, interested in starting on naltrexone to minimize alcohol cravings. [facility] Medical History H/O urinary retention Benign prostatic hyperplasia with lower urinary tract symptoms No known health problems Social History Household Members: None Housing: Apartment Do you presently have visiting nurse or other home services: No Alcohol intake: current Alcohol intake frequency: 3 or more drinks per day Alcohol type: beer Patient Tobacco Use Status: Never used Tobacco e-Cigarette/Vaping Use: Never Used Second Hand Smoke Exposure: No service: No Sexual orientation: Straight/Heterosexual Physical Exam Vital Signs: Last Vital Signs Pulse 82 07/30/25 08:49 BP 126/78 07/30/25 08:49 Pulse Ox 96 07/30/25 08:49 BMI result Body Mass Index 25.2 Results AMB 14 Panel Urine Drug Screen Urine Marijuana (THC) Negative Last Edit by Doris Saldana CMA on 07/30/25 09:32 Urine Cocaine Negative Last Edit by Doris Saldana CMA on 07/30/25 09:32 Urine Morphine Negative Last Edit by Doris Saldana CMA on 07/30/25 09:32 Urine Methamphetamine Negative Last Edit by Doris Saldana, MARYBEL on 07/30/25 09:32 Urine Amphetamine Negative Last Edit by Doris Saldana, MARYBEL on 07/30/25 09:32 Urine Benzodiazepine Positive Last Edit by Doris Saldana, MARYBEL on 07/30/25 09:32 Urine Barbiturates Negative Last Edit by Doris Saldana, MARYBEL on 07/30/25 09:32 Urine Methadone Negative Last Edit by Doris Saldana, MARYBEL on 07/30/25 09:32 Urine Buprenorphine Negative Last Edit by Doris Saldana, MARYBEL on 07/30/25 09:32 Urine Tricyclic Antidepressant Negative Last Edit by Doris Saldana CMA on 07/30/25 09:32 Urine MDMA Negative Last Edit by Doris Saldana CMA on 07/30/25 09:32 Urine Oxycodone Negative Last Edit by Doris Saldana CMA on 07/30/25 09:32 Urine Phencyclidine Negative Last Edit by Doris Saldana CMA on 07/30/25 09:32 Urine Propoxyphene Negative Last Edit by Doris Saldana CMA on 07/30/25 09:32 Results Reviewed Results Reviewed: Laboratory Last Values POC Urine Buprenorphine Negative 07/30/25 09:28 POC Urine Morphine Negative 07/30/25 09:28 POC Urine Oxycodone Negative 07/30/25 09:28 POC Urine Methadone Negative 07/30/25 09:28 POC Urine Propoxyphene Negative 07/30/25 09:28 POC Urine Barbiturates Negative 07/30/25 09:28 POC U Tricyclic Antidpr Negative 07/30/25 09:28 POC Urine PCP Negative 07/30/25 09:28 POC Ur Amphetamines Negative 07/30/25 09:28 POC Ur Methamphetamine Negative 07/30/25 09:28 POC Urine MDMA Negative 07/30/25 09:28 POC Ur Benzodiazepine Positive 07/30/25 09:28 POC Urine Cocaine Negative 07/30/25 09:28 POC Ur Marijuana (THC) Negative 07/30/25 09:28 Assessment & Plan Assessment & Plan (1) Alcohol use disorder: Code(s): F10.90 - Alcohol use, unspecified, uncomplicated Category: Medical Plan The plan of care is to start on naltrexone 50 mg, folic acid 1 mg, and thiamine 100 mg daily. Education provided regarding risk reduction activities to minimize alcohol consumption and detox. Follow-up in 1 month or sooner if needed. Orders: Orders AMB 14 Panel Urine Drug Screen Today Z51.81 - Encounter for therapeutic drug level monitoring Medications: New folic acid Take 1 tablet daily 1 mg PO DAILY 30 tabs 3RF 30 days thiamine mononitrate (vit B1) Take 1 tablet daily 100 mg PO DAILY 30 tabs 3RF 30 days naltrexone Take 1/2 tablet for 3 days and then increase to 1 tablet daily. 50 mg PO DAILY 30 tabs 0RF 30 days Patient Instructions: - Start on the naltrexone tablets 50 mg, folic acid, and thiamine as prescribed. - Engage in risk reduction activities to minimize alcohol consumption and consider inpatient detox. - Call with questions, concerns, or to report side effects/new onset of symptoms to [facility]. - The patient verbalized understanding and agreed with plan of care. Coding Level of Care Code New Pt Level 3 (97479) Diagnoses Alcohol use disorder F10.90 MAT Intake Nursing Intake Reason for visit: MAT Are you currently using?: Yes What are you taking?: Alcohol When was your last use?: Friday 07/27 How much?: 6 25 oz cans of beer What is your source of income?: employed FT What is your current relationship status?: Single Current PCP: none- referring to [facility] PCP Referral Source: ED visit- Rosa in CARE team reached out Details: Pt was detoxing in the ED and sent home on withdrawal taper protocol and a work return note. He inadvertently gave taper protocol to his employer who made him leave. TW made him appointment while in ED and he came in for MAT intake to engage in outpatient treatment. Substance Abuse History Substance Abuse History (includes route, frequency and quantity): Alcohol (since age of 14, heavily for past 30 years) and Marijuana Social History Domestic Violence concerns: none Children: no Do you have a support system?: no Current mode of transportation?: electric bike Where are you currently residing?: renting-[place] Drug Use Have you ever shared needles?: No Have you ever belonged to a needle exchange program?: No Do you buy needles at a pharmacy?: No Have you ever overdosed?: No Number of lifetime overdoses: 0 Have you ever been hospitalized for an overdose?: No Was Naloxone administered?: Not applicable Recovery History Have you had any periods of recovery?: No What is your longest time in recovery?: 10 days while inpatient @[facility] 06/25/25 Have you ever had inpatient treatment for your substance abuse disorder?: No Have you been in an inpatient detoxification program?: Yes Have you been in an inpatient Rehab/[place] house?: No Have you been in an outpatient Methadone Maintenance program?: No Have you been in an outpatient Suboxone Maintenance program?: No Have you been in an AA/NA support program?: Yes ( long time ago ) Have you had a Recovery Support Welfare Centre Manager?: No Have you had Peer Support?: No Behavioral Health History Do you have a current provider? If so, who?: no diagnosis: no History of other addictive behavior: no History of inpatient psychiatric hospitalization? If so, how many? Most Recent? Where?: yes- 10 days while inpatient @[facility] 06/25/25 AUD and unstable mood History of self harming thoughts?: No History of homicidal or suicidal intentions?: No Medical Conditions Endocarditis?: No Skin Infection: No Seizure related to withdrawal or overdose: No Head or brain injury: No Hepatitis A (if yes, have you been treated?): No Hepatitis B (if yes, have you been treated?): No HIV (if yes, have you been treated?): No TB (if yes, have you been treated?): No Other: No Do you have any chronic pain conditions?: no Legal History History of incarceration: No Currently on parole or probation: Yes Court mandated programs: Yes Pending court cases: Yes DCF involvement: No Details: Father has restraining order against him due to alcohol use
== END 2025-07-30 10:03 | disposition home or self-care (01) ==
LOC: HO.HCC 08:38
PROVIDERS: Visit Provider Clinical Nurse Specialist Psychiatric/Mental Health
DX: F10.90 Alcohol use, unspecified, uncomplicated (principal); Z51.81 Encounter for therapeutic drug level monitoring
CPT/HCPCS: 99203

== ENCOUNTER → 2025-07-30 08:37 | Outpatient (BNVA) | payer OTHER, SELFPAY | PROVIDERS: Visit Provider Clinical Nurse Specialist Psychiatric/Mental Health | DX: F10.20 Alcohol dependence, uncomplicated (principal); Z51.81 Encounter for therapeutic drug level monitoring; Z79.899 Other long term (current) drug therapy | CPT/HCPCS: 80307 ==